=== PATIENT | female | born 1935 | race Caucasian/White ===

== ENCOUNTER → 2016-11-18 | Outpatient (REF) | payer MEDICARE, OTHER ==
[~2016-11-18] MED LIST: /ALEN70TA; /ALEN70TA PO; /ATOR40TA; /GLIM4TA; /OMEP10CA; /PANT40TA; /PANT40TA OR; /PRAV20TA; /TIOT18INH; ACET500T2; ACET65TA PO; AMLO5TAB; ASPI325T; ASPI81TA83 PO; ATAC32TA; BABY81CH; CALCCHW12; CALCIUM/VIT D PO; CAND16TA OR; CLAR5CHW; CLON0.5T; CLON0.5T PO; COUM10TA; COZA50TA18; FLUO10TA2 PO; FURO20TA2; GLUCOSAMINE; KLOR10TA; LASI40TA; MAGN500T2 OR; MULTIVIT PO; NOVO70VL; OMEGA 3 FATTY ACIDS; PROZ10CA; QUINAPRIL PO; THERGRAN; TYLENOL #3; VITAMIN D50000 UNT; [UNRECOGNIZED DRUG - OTHER]
== END ==
LOC: M LAB REF 16:56
PROVIDERS: ATTEND Obstetrics & Gynecology
DX: N39.0 Urinary tract infection, site not specified (principal)

== ENCOUNTER → 2018-05-29 | Outpatient (CLI) | payer MEDICARE, OTHER ==
--- NOTE | 2018-05-29 13:07 | REP ---
Chest two views HISTORY: Shortness of breath Comparison: 07/30/2015 The lungs are clear. The cardiac silhouette is enlarged. The pulmonary vasculature is normal in appearance. The bony structure is intact. There is scoliosis of the thoracic spine convex to the right. There is an old left rib fracture. IMPRESSION: Cardiomegaly. Electronically Signed by Noble Aldana MD 05/29/2018 12:59 P
== END ==
LOC: M RAD 12:27
PROVIDERS: ATTEND Family Medicine
DX: I51.7 Cardiomegaly (principal); R06.02 Shortness of breath

== ENCOUNTER → 2018-08-08 | Outpatient (CLI) | payer MEDICARE, OTHER ==
[~2018-08-08] MED LIST changes: -/ATOR40TA; -/GLIM4TA; -/PANT40TA; -/PANT40TA OR; -/PRAV20TA; -/TIOT18INH; +AMAR1TAB6; +LIPI1TAB2; +PRAV1TAB39; +PROT1TAB2; +PROT1TAB2 OR; +SPIR1CAP
--- NOTE | 2018-08-08 15:22 | REP ---
LUMBAR SPINE, FIVE VIEWS: HISTORY: Back pain. There is no acute fracture. The L2-3 through L5-S1 intervertebral discs are decreased in height consistent with disc degeneration. There is narrowing of the L4-5 and L5-S1 facet joints. There is scoliosis convex to the left. There are 7 mm of grade 1 spondylolisthesis of L4 on 5. The bony structure is osteopenic. IMPRESSION: Degenerative change as described above. Electronically Signed by Noble Aldana MD 08/08/2018 03:23 P
== END ==
LOC: M RAD 14:03
PROVIDERS: ATTEND Family Medicine
DX: M51.36 Other intervertebral disc degeneration, lumbar region (principal); M51.37 Other intervertebral disc degeneration, lumbosacral region; M41.9 Scoliosis, unspecified; M43.16 Spondylolisthesis, lumbar region

== ENCOUNTER → 2018-12-22 | Outpatient (CLI) | payer MEDICARE, OTHER ==
--- NOTE | 2018-12-22 13:57 | REP ---
Clinical: Contusion. Technique: AP, lateral, bilateral oblique views of the right ankle. Findings: Age-related osteopenia and degenerative changes are appreciated. Lateral swelling. No obvious acute fracture or dislocation. Impression: Soft-tissue swelling. No obvious acute fracture dislocation. Electronically Signed by Noble Montiel MD 12/22/2018 01:49 P
--- NOTE | 2018-12-22 13:59 | REP ---
Clinical: Contusion. Technique: AP and lateral views of the right tibia / fibula. Findings: Evidence of prior knee replacement and peripheral vascular disease. No acute fracture or dislocation. No subcutaneous emphysema or foreign body. Impression: No acute fracture or dislocation. Electronically Signed by Noble Montiel MD 12/22/2018 01:51 P
--- NOTE | 2018-12-22 14:05 | REP ---
Clinical: Contusion. Technique: AP, lateral, bilateral oblique views of the right foot. Findings: Age-related osteopenia and osteoarthritic degenerative changes are appreciated. No obvious acute fracture or dislocation identified. Impression: No obvious acute fracture or dislocation. Electronically Signed by Noble Montiel MD 12/22/2018 01:57 P
== END ==
LOC: M WUC 13:25
PROVIDERS: ATTEND Physician Assistant
DX: S80.11XA Contusion of right lower leg, initial encounter (principal); S90.01XA Contusion of right ankle, initial encounter; S90.31XA Contusion of right foot, initial encounter; Z96.651 Presence of right artificial knee joint; M85.871 Other specified disorders of bone density and structure, right ankle and foot; M19.071 Primary osteoarthritis, right ankle and foot; M79.89 Other specified soft tissue disorders; X58.XXXA Exposure to other specified factors, initial encounter; Y92.9 Unspecified place or not applicable

== ENCOUNTER → 2019-11-24 | Outpatient (REF) | payer MEDICARE, OTHER | LOC: M WUC 11:25 | PROVIDERS: ATTEND Physician Assistant | DX: N39.0 Urinary tract infection, site not specified (principal) ==

== ENCOUNTER → 2019-12-18 | Outpatient (REF) | payer MEDICARE, OTHER ==
[2019-12-18 18:15] LABS: APPEARANCE, URINE CLEAR (CLEAR); BACTERIA, URINE AUTO 1+ (NEGATIVE); BILIRUBIN, URINE AUTO NEGATIVE (NEGATIVE); BLOOD, URINE BLOOD NEGATIVE (NEGATIVE); COLOR, URINE YELLOW (YELLOW); GLUCOSE, URINE (UA) AUTO NEGATIVE (NEGATIVE); KETONE, URINE AUTO NEGATIVE (NEGATIVE); LEUKOCYTE ESTERASE, URINE AUTO 1+ (NEGATIVE); NITRITE, URINE AUTO NEGATIVE (NEGATIVE); PROTEIN, URINE AUTO NEGATIVE (NEGATIVE); RBC, URINE AUTO 1 /HPF (0-3); SPECIFIC GRAVITY URINE AUTO 1.012 (1.002-1.035); SQUAMOUS EPITHELIAL CELL UR AU 0 /HPF (0-6); UROBILINOGEN, URINE AUTO 0.2 mg/dL (0.0-2.0); WBC, URINE AUTO 13 /HPF (0-3)
== END ==
LOC: M LAB REF 17:16
PROVIDERS: ATTEND Obstetrics & Gynecology
DX: N32.81 Overactive bladder (principal); N39.41 Urge incontinence; R35.1 Nocturia

== ENCOUNTER → 2020-06-03 | Outpatient (CLI) | payer MEDICARE, OTHER | LOC: M LABSMTC 12:32 | PROVIDERS: ATTEND Pediatrics | DX: Z20.822 Contact with and (suspected) exposure to COVID-19 (principal) ==

== ENCOUNTER 2020-06-27 14:23 | Emergency (ER) | payer MEDICARE, OTHER ==
[~2020-06-27] VITALS: Ht 162.6 cm; Wt 57.3 kg
[2020-06-27] MEDS ORDERED: FURO20TA2 PO (14:48)
[2020-06-27] MEDS ORDERED: QUIN1TAB3 PO (14:48)
[2020-06-27] MEDS ORDERED: MYRB25TA PO (14:48)
[2020-06-27] MEDS ORDERED: K-TA10TA2 PO (14:48)
[2020-06-27] MEDS ORDERED: CVS1CAP2 PO (14:48)
[2020-06-27] MEDS ORDERED: CLON1TAB8 PO (14:48)
[2020-06-27] MEDS ORDERED: MOVE1TAB PO (14:48)
[2020-06-27] MEDS ORDERED: MORPHINE 4 MG/ML 1ML VIAL/SYRINGE (J2270) IV ONE (15:20)
--- NOTE | 2020-06-27 15:21 | REP ---
INDICATION: fall injury; right shoulder/upper arm/elbow pain COMPARISON: None. TECHNIQUE: AP and lateral views of the right humerus. FINDINGS: Age-related osteopenia and degenerative changes are appreciated. No obvious acute fracture or dislocation. IMPRESSION: Osteopenia and degenerative changes. No acute fracture or dislocation. <Electronically signed by Noble Montiel > 06/27/20 [id number]
--- NOTE | 2020-06-27 15:22 | REP ---
INDICATION: fall injury; right shoulder/upper arm/elbow pain COMPARISON: None. TECHNIQUE: Internal rotation, external rotation, and Y view. FINDINGS: Age-related osteopenia and degenerative changes are appreciated. No obvious acute fracture or dislocation. IMPRESSION: Osteopenia and degenerative changes. No acute fracture or dislocation appreciated. <Electronically signed by Noble Montiel > 06/27/20 [id number]
--- NOTE | 2020-06-27 15:23 | REP ---
INDICATION: fall injury; right shoulder/upper arm/elbow pain COMPARISON: None. TECHNIQUE: AP, lateral, bilateral oblique views of the right elbow. FINDINGS: Age-related osteopenia and degenerative changes are appreciated. No definite acute fracture or dislocation. Anterior and posterior fat pads are in relatively normal position. IMPRESSION: Osteopenia and degenerative changes. No definite acute fracture or dislocation. <Electronically signed by Noble Montiel > 06/27/20 [id number]
[2020-06-27 16:47] LABS: BASO % 0.6 % (0.0-1.0); EOS # 0.2 10^3/uL (0.0-0.5); EOS % 3.2 % (0.0-3.0); HEMATOCRIT 40.8 % (36.0-47.0); HEMOGLOBIN 12.7 g/dl (12.0-15.5); LYMPH % 29.4 % (24.0-44.0); MEAN CORPUSCULAR HEMOGLOBIN 29.5 pg (27.0-33.0); MEAN CORPUSCULAR HGB CONC 31.1 g/dl (32.0-36.5); MEAN CORPUSCULAR VOLUME 94.9 fl (80.0-96.0); MONO # 0.6 10^3/uL (0.0-0.8); MONO % 8.6 % (2.0-8.0); NEUTROPHILS # 3.9 10^3/uL (1.5-8.5); NEUTROPHILS % 57.8 % (36.0-66.0); WHITE BLOOD COUNT 6.8 10^3/uL (4.0-10.0)
[2020-06-27] MEDS ORDERED: amLODIPine 5 MG TAB PO ONE (17:05)
[2020-06-27 17:13] VITALS: BP 199/94
[2020-06-27 17:44] LABS: BLOOD UREA NITROGEN 24 MG/DL (7-18); CARBON DIOXIDE LEVEL 26 MEQ/L (21-32); CHLORIDE LEVEL 111 MEQ/L (98-107); CK-MB VALUE MASS 1.6 NG/ML (<3.6); CPK CREATINE PHOSPHOKINASE 89 U/L (26-192); CREATININE FOR GFR 0.83 MG/DL (0.55-1.30); GLOMERULAR FILTRATION RATE > 60.0 (>32); GLUCOSE, FASTING 96 MG/DL (70-100); POTASSIUM SERUM 4.4 MEQ/L (3.5-5.1); SODIUM LEVEL 144 MEQ/L (136-145); THYROID STIMULATING HORMONE 0.132 uIU/ML (0.358-3.740); TROPONIN I < 0.02 NG/ML (< 0.10)
[2020-06-27] MEDS ORDERED: NORV2TAB PO (18:36)
[2020-06-27 18:37] LABS: FREE T4 1.03 NG/DL (0.76-1.46)
[2020-06-27 18:49] VITALS: BP 198/95
--- NOTE | 2020-06-28 09:37 | ECGEPIP ---
[facility] - ED Test Date: 2020-06-27 Pat Name: JAYDON CONNELLY Department: Room: - Gender: Female Principal Consulting Engineer: SARIKA : 1935 Requested By: J LUIS JC Order Number: [id number] Reading MD: Gil Kaur Measurements Intervals [place] Rate: 61 P: 41 NE: 174 QRS: -16 QRSD: 96 T: 0 QT: 428 QTc: 430 Interpretive Statements Normal sinus rhythm with sinus arrhythmia Moderate voltage criteria for LVH, may be normal variant Inferior infarct , age undetermined POOR R WAVE PROGRESSION SIMILAR TO 07/30/15 Electronically Signed on 06-28-2020 9:36:59 EDT by Gil Kaur
== END 2020-06-27 18:50 | disposition home or self-care (01) ==
LOC: EDBD 14:23 → M ED 14:23
DX: S46.911A Strain of unspecified muscle, fascia and tendon at shoulder and upper arm level, right arm, initial encounter (principal); W01.0XXA Fall on same level from slipping, tripping and stumbling without subsequent striking against object, initial encounter; Y92.019 Unspecified place in single-family (private) house as the place of occurrence of the external cause; Y93.9 Activity, unspecified; Y99.9 Unspecified external cause status; I10 Essential (primary) hypertension; M19.011 Primary osteoarthritis, right shoulder; M85.811 Other specified disorders of bone density and structure, right shoulder; G25.81 Restless legs syndrome; F33.9 Major depressive disorder, recurrent, unspecified; Z79.899 Other long term (current) drug therapy
CPT/HCPCS: 73030; 73060; 73080; 80048; 82550; 82553; 84439; 84443; 84484; 85025; 93005; 96374; 99284; J2270

== ENCOUNTER → 2020-11-19 | Outpatient (CLI) | payer MEDICARE, OTHER ==
[~2020-11-19] MED LIST changes: +CLON1TAB8 PO; +CVS1CAP2 PO; +FURO20TA2 PO; +K-TA10TA2 PO; +MOVE1TAB PO; +MYRB25TA PO; +NORV2TAB PO; +QUIN1TAB3 PO
[2020-11-19 14:42] LABS: APPEARANCE, URINE CLEAR (CLEAR); BACTERIA, URINE AUTO NEGATIVE (NEGATIVE); BILIRUBIN, URINE AUTO NEGATIVE (NEGATIVE); BLOOD, URINE BLOOD NEGATIVE (NEGATIVE); COLOR, URINE YELLOW (YELLOW); GLUCOSE, URINE (UA) AUTO NEGATIVE (NEGATIVE); KETONE, URINE AUTO NEGATIVE (NEGATIVE); LEUKOCYTE ESTERASE, URINE AUTO TRACE (NEGATIVE); MUCUS, URINE SMALL (NEGATIVE); NITRITE, URINE AUTO NEGATIVE (NEGATIVE); PROTEIN, URINE AUTO NEGATIVE (NEGATIVE); RBC, URINE AUTO 1 /HPF (0-3); SPECIFIC GRAVITY URINE AUTO 1.013 (1.002-1.035); SQUAMOUS EPITHELIAL CELL UR AU 1 /HPF (0-6); UROBILINOGEN, URINE AUTO 0.2 mg/dL (0.0-2.0); WBC, URINE AUTO 3 /HPF (0-3)
== END ==
LOC: M WUC 11:47
PROVIDERS: ATTEND Family Medicine
DX: R35.0 Frequency of micturition (principal)

== ENCOUNTER → 2021-06-28 | Outpatient (REF) | payer MEDICARE, OTHER ==
[2021-06-28 16:28] LABS: BASO # 0.1 10^3/uL (0.0-0.2); BASO % 0.8 % (0.0-1.0); EOS # 0.6 10^3/uL (0.0-0.5); EOS % 9.1 % (0.0-3.0); HEMATOCRIT 37.7 % (36.0-47.0); HEMOGLOBIN 12.6 g/dl (12.0-15.5); LYMPH # 2.2 10^3/uL (1.5-5.0); LYMPH % 33.7 % (24.0-44.0); MEAN CORPUSCULAR HEMOGLOBIN 33.9 pg (27.0-33.0); MEAN CORPUSCULAR HGB CONC 33.4 g/dl (32.0-36.5); MEAN CORPUSCULAR VOLUME 101.3 fl (80.0-96.0); MONO # 0.6 10^3/uL (0.0-0.8); MONO % 8.8 % (2.0-8.0); NEUTROPHILS % 47.3 % (36.0-66.0); PLATELET COUNT, AUTOMATED 292 10^3/uL (150-450); RED BLOOD COUNT 3.72 10^6/uL (4.00-5.40); WHITE BLOOD COUNT 6.4 10^3/uL (4.0-10.0)
[2021-06-28 16:48] LABS: ALBUMIN 3.8 GM/DL (3.2-5.2); BILIRUBIN,TOTAL 0.3 MG/DL (0.2-1.0); CALCIUM LEVEL 9.5 MG/DL (8.8-10.2); CHOLESTEROL RISK RATIO 2.471 (<5); CREATININE FOR GFR 0.96 MG/DL (0.55-1.30); FREE T4 0.92 NG/DL (0.76-1.46); GLOMERULAR FILTRATION RATE 58.7 (>32); POTASSIUM SERUM 4.3 MEQ/L (3.5-5.1); THYROID STIMULATING HORMONE 0.246 uIU/ML (0.358-3.740); TOTAL 25(OH) VITAMIN D 23.9 NG/ML (30.0-100.0); TOTAL PROTEIN 7.4 GM/DL (6.4-8.2)
[2021-06-28 17:32] LABS: FOLATE 17.3 NG/ML
== END ==
LOC: M SFHCCAPE 08:05
PROVIDERS: ATTEND Physician Assistant
DX: R32 Unspecified urinary incontinence (principal); I10 Essential (primary) hypertension; Z79.899 Other long term (current) drug therapy

== ENCOUNTER → 2021-07-01 | Outpatient (REF) | payer MEDICARE, OTHER ==
[2021-07-01 19:36] LABS: APPEARANCE, URINE CLEAR (CLEAR); BACTERIA, URINE AUTO NEGATIVE (NEGATIVE); BILIRUBIN, URINE AUTO NEGATIVE (NEGATIVE); BLOOD, URINE BLOOD NEGATIVE (NEGATIVE); COLOR, URINE YELLOW (YELLOW); GLUCOSE, URINE (UA) AUTO NEGATIVE (NEGATIVE); KETONE, URINE AUTO NEGATIVE (NEGATIVE); LEUKOCYTE ESTERASE, URINE AUTO NEGATIVE (NEGATIVE); MUCUS, URINE SMALL (NEGATIVE); NITRITE, URINE AUTO NEGATIVE (NEGATIVE); PROTEIN, URINE AUTO NEGATIVE (NEGATIVE); RBC, URINE AUTO 0 /HPF (0-3); SPECIFIC GRAVITY URINE AUTO 1.011 (1.002-1.035); SQUAMOUS EPITHELIAL CELL UR AU 0 /HPF (0-6); UROBILINOGEN, URINE AUTO 0.2 mg/dL (0.0-2.0); WBC, URINE AUTO 2 /HPF (0-3)
== END ==
LOC: M SFHCCAPE 14:24
PROVIDERS: ATTEND Physician Assistant
DX: R32 Unspecified urinary incontinence (principal)

== ENCOUNTER → 2022-01-04 | Outpatient (REF) | payer MEDICARE, OTHER ==
[2022-01-04 17:52] LABS: BASO # 0.1 10^3/uL (0.0-0.2); BASO % 0.8 % (0.0-1.0); EOS # 0.4 10^3/uL (0.0-0.5); EOS % 4.9 % (0.0-3.0); HEMATOCRIT 40.3 % (36.0-47.0); HEMOGLOBIN 12.8 g/dl (12.0-15.5); LYMPH % 23.4 % (24.0-44.0); MEAN CORPUSCULAR HEMOGLOBIN 31.1 pg (27.0-33.0); MEAN CORPUSCULAR HGB CONC 31.8 g/dl (32.0-36.5); MEAN CORPUSCULAR VOLUME 97.8 fl (80.0-96.0); MONO # 0.9 10^3/uL (0.0-0.8); MONO % 10.1 % (2.0-8.0); NEUTROPHILS # 5.1 10^3/uL (1.5-8.5); NEUTROPHILS % 60.6 % (36.0-66.0); PLATELET COUNT, AUTOMATED 315 10^3/uL (150-450); RED BLOOD COUNT 4.12 10^6/uL (4.00-5.40); WHITE BLOOD COUNT 8.4 10^3/uL (4.0-10.0)
[2022-01-04 18:36] LABS: ALBUMIN 3.8 GM/DL (3.2-5.2); BILIRUBIN,TOTAL 0.4 MG/DL (0.2-1.0); CALCIUM LEVEL 9.8 MG/DL (8.8-10.2); CREATININE FOR GFR 0.98 MG/DL (0.55-1.30); FREE T4 0.89 NG/DL (0.76-1.46); GLOMERULAR FILTRATION RATE 57.3 (>32); THYROID STIMULATING HORMONE 0.205 uIU/ML (0.358-3.740); TOTAL PROTEIN 7.6 GM/DL (6.4-8.2)
[2022-01-09 17:06] LABS: HOMOCYST(E)INE SERUM 27.2 umol/L (0.0-21.3); Methylmalonic Acid 458 nmol/L (0-378)
== END ==
LOC: M SFHCCAPE 08:13
PROVIDERS: ATTEND Physician Assistant
DX: D75.89 Other specified diseases of blood and blood-forming organs (principal); R94.6 Abnormal results of thyroid function studies

== ENCOUNTER → 2022-06-15 | Outpatient (CLI) | payer MEDICARE, OTHER ==
[~2022-06-15] MED LIST changes: +AMLO1TAB24 PO; +ASPI81TA26 PO; +CELE40TA PO; +CITA20TA6 PO; +GLUC1TAB58 PO; +LISI20TA33 PO; +MYRB50TA PO
[2022-06-15 17:31] LABS: BASO % 0.5 % (0.0-1.0); EOS # 0.3 10^3/uL (0.0-0.5); EOS % 5.3 % (0.0-3.0); HEMATOCRIT 38.2 % (36.0-47.0); HEMOGLOBIN 12.3 g/dl (12.0-15.5); LYMPH # 1.6 10^3/uL (1.5-5.0); LYMPH % 24.2 % (24.0-44.0); MEAN CORPUSCULAR HEMOGLOBIN 31.9 pg (27.0-33.0); MEAN CORPUSCULAR HGB CONC 32.2 g/dl (32.0-36.5); MEAN CORPUSCULAR VOLUME 99.2 fl (80.0-96.0); MONO # 0.6 10^3/uL (0.0-0.8); NEUTROPHILS # 3.8 10^3/uL (1.5-8.5); NEUTROPHILS % 59.8 % (36.0-66.0); PLATELET COUNT, AUTOMATED 350 10^3/uL (150-450); RED BLOOD COUNT 3.85 10^6/uL (4.00-5.40); WHITE BLOOD COUNT 6.4 10^3/uL (4.0-10.0)
[2022-06-15 17:36] LABS: APPEARANCE, URINE HAZY (CLEAR); BACTERIA, URINE AUTO 3+ (NEGATIVE); BILIRUBIN, URINE AUTO NEGATIVE (NEGATIVE); BLOOD, URINE BLOOD 1+ (NEGATIVE); COLOR, URINE YELLOW (YELLOW); GLUCOSE, URINE (UA) AUTO NEGATIVE (NEGATIVE); KETONE, URINE AUTO NEGATIVE (NEGATIVE); LEUKOCYTE ESTERASE, URINE AUTO 2+ (NEGATIVE); NITRITE, URINE AUTO POSITIVE (NEGATIVE); PROTEIN, URINE AUTO NEGATIVE (NEGATIVE); RBC, URINE AUTO 4 /HPF (0-3); SPECIFIC GRAVITY URINE AUTO 1.019 (1.002-1.035); SQUAMOUS EPITHELIAL CELL UR AU 0 /HPF (0-6); UROBILINOGEN, URINE AUTO 0.2 mg/dL (0.0-2.0); WBC, URINE AUTO 31 /HPF (0-3)
[2022-06-15 17:49] LABS: ALBUMIN 3.6 G/DL (3.2-5.2); ALKALINE PHOSPHATASE 77 U/L (46-116); ALT/SGPT 14 U/L (7.0-40); AST/SGOT 11 U/L (<34); BILIRUBIN,TOTAL 0.2 MG/DL (0.3-1.2); BLOOD UREA NITROGEN 46 MG/DL (9-23); CALCIUM LEVEL 9.9 MG/DL (8.3-10.6); CARBON DIOXIDE LEVEL 28 MMOL/L (20-31); CHLORIDE LEVEL 105 MMOL/L (98-107); CREATININE FOR GFR 1.14 MG/DL (0.55-1.30); FOLATE 6.23 NG/ML (>5.4); FREE T4 1.08 NG/DL (0.89-1.76); GLOMERULAR FILTRATION RATE 48.1 (>32); GLUCOSE, FASTING 99 MG/DL (74-106); POTASSIUM SERUM 4.4 MMOL/L (3.5-5.1); SODIUM LEVEL 141 MMOL/L (136-145); THYROID STIMULATING HORMONE 0.068 uIU/ML (0.55-4.78); TOTAL PROTEIN 7.3 G/DL (5.7-8.2)
[2022-06-15 17:50] LABS: VITAMIN B12 LEVEL > 2000 PG/ML (211-911)
[2022-06-19 08:12] LABS: Methylmalonic Acid 306 nmol/L (0-378)
== END ==
LOC: M PLAIMG 15:08
PROVIDERS: ATTEND Physician Assistant
DX: M85.88 Other specified disorders of bone density and structure, other site (principal); M41.9 Scoliosis, unspecified; M51.34 Other intervertebral disc degeneration, thoracic region; E53.8 Deficiency of other specified B group vitamins; R29.6 Repeated falls; Z79.899 Other long term (current) drug therapy

== ENCOUNTER → 2022-07-07 | Outpatient (CLI) | payer MEDICARE, OTHER ==
[~2022-07-07] MED LIST changes: +CEFT1INJ5 IM; +CELE20TA PO; +PERCOCET PO; +PRED20TA PO; +VENL37.598 PO
== END ==
LOC: M PLAIMG 13:14
PROVIDERS: ATTEND Physician Assistant
DX: M54.6 Pain in thoracic spine (principal); M41.84 Other forms of scoliosis, thoracic region

== ENCOUNTER 2022-07-09 15:27 | Inpatient (IN) | payer MEDICARE, OTHER ==
[~2022-07-09] VITALS: Ht 157.5 cm; Wt 47.8 kg
[~2022-07-09 15:27] MED LIST changes: -AMLO1TAB24 PO; -ASPI81TA26 PO; -CEFT1INJ5 IM; -CELE20TA PO; -CELE40TA PO; -CITA20TA6 PO; -GLUC1TAB58 PO; -LISI20TA33 PO; -MYRB50TA PO; -PERCOCET PO; -PRED20TA PO; -VENL37.598 PO
[2022-07-09] MEDS ORDERED: LISI20TA33 PO (15:42)
[2022-07-09] MEDS ORDERED: CITA20TA6 PO (15:43)
[2022-07-09] MEDS ORDERED: MYRB50TA PO (15:43)
[2022-07-09] MEDS ORDERED: GLUC1TAB58 PO (15:44)
[2022-07-09 17:15] LABS: BASO % 0.3 % (0.0-1.0); EOS % 0.1 % (0.0-3.0); HEMATOCRIT 37.3 % (36.0-47.0); HEMOGLOBIN 11.8 g/dl (12.0-15.5); LYMPH # 0.9 10^3/uL (1.5-5.0); LYMPH % 8.3 % (24.0-44.0); MEAN CORPUSCULAR HEMOGLOBIN 30.6 pg (27.0-33.0); MEAN CORPUSCULAR HGB CONC 31.6 g/dl (32.0-36.5); MEAN CORPUSCULAR VOLUME 96.9 fl (80.0-96.0); MONO # 0.7 10^3/uL (0.0-0.8); MONO % 6.4 % (2.0-8.0); NEUTROPHILS # 9.3 10^3/uL (1.5-8.5); NEUTROPHILS % 84.5 % (36.0-66.0); PLATELET COUNT, AUTOMATED 335 10^3/uL (150-450); RED BLOOD COUNT 3.85 10^6/uL (4.00-5.40)
[2022-07-09 17:36] LABS: ETHYL ALCOHOL (ETHANOL) < 0.003 % (0.000-0.010)
[2022-07-09 17:37] LABS: ACETAMINOPHEN LEVEL < 2.0 UG/ML (10.0-20.0)
[2022-07-09 17:38] LABS: SALICYLATE LEVEL < 3.0 MG/DL (<30)
[2022-07-09 17:43] LABS: ALBUMIN 4.1 G/DL (3.2-5.2); ALKALINE PHOSPHATASE 70 U/L (46-116); ALT/SGPT 28 U/L (7.0-40); AST/SGOT 48 U/L (<34); BILIRUBIN,DIRECT < 0.1 MG/DL (<0.4); BILIRUBIN,TOTAL 0.4 MG/DL (0.3-1.2); BLOOD UREA NITROGEN 52 MG/DL (9-23); CALCIUM LEVEL 9.1 MG/DL (8.3-10.6); CARBON DIOXIDE LEVEL 25 MMOL/L (20-31); CHLORIDE LEVEL 103 MMOL/L (98-107); CK-MB VALUE MASS 2.8 NG/ML (<3.6); CPK CREATINE PHOSPHOKINASE 197 U/L (34-145); CREATININE FOR GFR 1.65 MG/DL (0.55-1.30); GLOMERULAR FILTRATION RATE 31.3 (>32); GLUCOSE, FASTING 124 MG/DL (74-106); MB/CK RELATIVE INDEX 1.42 (< OR =4); POTASSIUM SERUM 6.1 MMOL/L (3.5-5.1); SODIUM LEVEL 137 MMOL/L (136-145); THYROID STIMULATING HORMONE 0.289 uIU/ML (0.55-4.78); TOTAL PROTEIN 7.3 G/DL (5.7-8.2)
[2022-07-09] MEDS ORDERED: NS 1,000 ML IV ONE (18:00)
[2022-07-09 18:36] LABS: CREATININE FOR GFR 1.66 MG/DL (0.55-1.30); GLOMERULAR FILTRATION RATE 31.1 (>32); POTASSIUM SERUM 5.1 MMOL/L (3.5-5.1)
[2022-07-09] MEDS ORDERED: ASPI81TA26 PO (18:45)
[2022-07-09] MEDS ORDERED: CELE40TA PO (18:45)
[2022-07-09] MEDS ORDERED: AMLO1TAB24 PO (18:45)
[2022-07-09] MEDS ORDERED: HOME MED LIST COMPLETE! XX SCH (18:50)
[2022-07-09 18:57] LABS: RSV AMPLIFICATION NEGATIVE (NEGATIVE)
[2022-07-09] MEDS: NS 1,000 ML IV SCH (19:50)
[2022-07-09 23:32] VITALS: BP 133/77
[2022-07-10] MEDS: ACETAMINOPHEN TAB 650MG DOSE (2X325MG) PO PRN ×2 (00:14→10:01)
[2022-07-10] MEDS: NS 1,000 ML IV SCH ×2 (05:36→20:19)
[2022-07-10 06:00] VITALS: BP 128/50
[2022-07-10 06:13] LABS: AMPHETAMINES LEVEL URINE NEGATIVE (NEGATIVE); BARBITURATES URINE NEGATIVE (NEGATIVE); BENZODIAZEPINES URINE NEGATIVE (NEGATIVE); CANNABINOIDS URINE NEGATIVE (NEGATIVE); COCAINE METABOLITE URINE NEGATIVE (NEGATIVE); METHADONE URINE NEGATIVE (NEGATIVE); OPIATES URINE NEGATIVE (NEGATIVE); PHENCYCLIDINE URINE NEGATIVE (NEGATIVE)
[2022-07-10 06:56] LABS: HEMATOCRIT 28.5 % (36.0-47.0); MEAN CORPUSCULAR HEMOGLOBIN 31.7 pg (27.0-33.0); MEAN CORPUSCULAR HGB CONC 32.3 g/dl (32.0-36.5); MEAN CORPUSCULAR VOLUME 98.3 fl (80.0-96.0); PLATELET COUNT, AUTOMATED 267 10^3/uL (150-450); WHITE BLOOD COUNT 8.7 10^3/uL (4.0-10.0)
[2022-07-10 07:02] LABS: HEMOGLOBIN 9.2 g/dl (12.0-15.5)
[2022-07-10 07:22] LABS: CHOLESTEROL RISK RATIO 2.49 (<5)
[2022-07-10 07:25] LABS: CALCIUM LEVEL 8.3 MG/DL (8.3-10.6); CREATININE FOR GFR 1.57 MG/DL (0.55-1.30); GLOMERULAR FILTRATION RATE 33.2 (>32); MAGNESIUM LEVEL 1.9 MG/DL (1.8-2.4); POTASSIUM SERUM 4.5 MMOL/L (3.5-5.1)
[2022-07-10 08:17] LABS: HEMOGLOBIN A1c 5.8 % (4.0-6.0)
[2022-07-10] MEDS ORDERED: ASPIRIN 81MG ENTERIC TABLET PO SCH (09:00)
[2022-07-10] MEDS ORDERED: CitaloPRAM (CeleXA) 20 MG TAB PO SCH (09:00)
[2022-07-10] MEDS: amLODIPine 5 MG TAB PO SCH (10:02)
[2022-07-10 10:29] VITALS: BP_SYST 120; BP_SYST 127; BP_SYST 131; BP_DIAS 58; BP_DIAS 61; BP_DIAS 88
[2022-07-10] MEDS: LIDOCAINE 5% (LIDODERM) PATCH TD SCH (12:03)
[2022-07-10] MEDS ORDERED: traMADol 50 MG TAB PO PRN (12:15)
[2022-07-10 12:29] LABS: HEMATOCRIT 28.7 % (36.0-47.0); HEMOGLOBIN 9.2 g/dl (12.0-15.5)
[2022-07-10] MEDS: VENLAFAXINE **XR** 37.5 MG CAPSULE PO SCH (13:20)
[2022-07-10 14:00] VITALS: BP 128/87
[2022-07-10 15:28] LABS: CREATININE,RANDOM URINE 81.7 MG/DL
[2022-07-10 18:43] LABS: HEMATOCRIT 26.6 % (36.0-47.0); HEMOGLOBIN 9.7 g/dl (12.0-15.5)
[2022-07-10 20:00] VITALS: BP 139/53
[2022-07-11 01:03] LABS: HEMATOCRIT 25.7 % (36.0-47.0); HEMOGLOBIN 8.8 g/dl (12.0-15.5)
[2022-07-11 06:00] VITALS: BP 159/74
[2022-07-11 06:10] LABS: BASO % 0.5 % (0.0-1.0); EOS # 0.2 10^3/uL (0.0-0.5); EOS % 2.2 % (0.0-3.0); HEMATOCRIT 27.1 % (36.0-47.0); HEMOGLOBIN 8.8 g/dl (12.0-15.5); LYMPH % 11.6 % (24.0-44.0); MEAN CORPUSCULAR HEMOGLOBIN 32.7 pg (27.0-33.0); MEAN CORPUSCULAR HGB CONC 32.5 g/dl (32.0-36.5); MEAN CORPUSCULAR VOLUME 100.7 fl (80.0-96.0); MONO # 0.7 10^3/uL (0.0-0.8); MONO % 7.6 % (2.0-8.0); NEUTROPHILS # 6.6 10^3/uL (1.5-8.5); NEUTROPHILS % 77.7 % (36.0-66.0); PLATELET COUNT, AUTOMATED 244 10^3/uL (150-450); RED BLOOD COUNT 2.69 10^6/uL (4.00-5.40); WHITE BLOOD COUNT 8.5 10^3/uL (4.0-10.0)
[2022-07-11 06:45] LABS: CALCIUM LEVEL 8.3 MG/DL (8.3-10.6); CREATININE FOR GFR 0.97 MG/DL (0.55-1.30); GLOMERULAR FILTRATION RATE 57.8 (>32); MAGNESIUM LEVEL 1.6 MG/DL (1.8-2.4); POTASSIUM SERUM 4.2 MMOL/L (3.5-5.1)
[2022-07-11] MEDS ORDERED: MOM 30ML SUSPENSION UDC PO PRN (08:30)
[2022-07-11] MEDS ORDERED: MIRALAX *UNIT DOSE* 17GM PACKET PO PRN (08:30)
[2022-07-11] MEDS ORDERED: PERCOCET 5MG/325MG TAB PO PRN (08:30)
[2022-07-11] MEDS ORDERED: SENOKOT S TAB PO PRN (08:30)
[2022-07-11] MEDS: VENLAFAXINE **XR** 37.5 MG CAPSULE PO SCH (08:37)
[2022-07-11 08:38] VITALS: BP 159/74
[2022-07-11] MEDS: amLODIPine 5 MG TAB PO SCH (08:38)
[2022-07-11] MEDS: LIDOCAINE 5% (LIDODERM) PATCH TD SCH (08:38)
[2022-07-11] MEDS: MAG SULF 1GM/100ML (MAG RUN) 1 GM in IV 1 EA IV SCH ×2 (08:40→10:46)
[2022-07-11] MEDS ORDERED: predniSONE 20 MG TAB PO SCH (09:00)
[2022-07-11] MEDS ORDERED: CitaloPRAM (CeleXA) 20 MG TAB PO SCH (09:00)
[2022-07-11 09:06] LABS: URIC ACID 7.2 MG/DL (3.1-7.8)
[2022-07-11 09:42] LABS: ERYTHROCYTE SEDIMENTATION RATE 1 mm/hr (0-30)
[2022-07-11] MEDS ORDERED: VENL37.598 PO (11:54)
[2022-07-11] MEDS ORDERED: PRED20TA PO (11:54)
[2022-07-11] MEDS ORDERED: CEFT1INJ5 IM (11:54)
[2022-07-11] MEDS ORDERED: CELE20TA PO (11:54)
[2022-07-11] MEDS ORDERED: PERCOCET PO (11:54)
[2022-07-11] MEDS ORDERED: cefTRIAXone SOD 1 GM in D5W MINI-BAG PLUS 50 ML IV SCH (12:00)
== END 2022-07-11 13:30 | DRG 205 ==
LOC: EDBD 15:27 → M ED 15:27 → M ED INP 19:47 → ENRESERV 22:35 → M MSPAV 23:32
PROVIDERS: ADMIT Internal Medicine; ATTEND Internal Medicine
DX: S22.31XA Fracture of one rib, right side, initial encounter for closed fracture (principal); I63.81 Other cerebral infarction due to occlusion or stenosis of small artery; N17.9 Acute kidney failure, unspecified; R45.851 Suicidal ideations; S70.01XA Contusion of right hip, initial encounter; E78.5 Hyperlipidemia, unspecified; I11.0 Hypertensive heart disease with heart failure; K21.9 Gastro-esophageal reflux disease without esophagitis; I50.9 Heart failure, unspecified; F32.A Depression, unspecified; R26.89 Other abnormalities of gait and mobility; M19.90 Unspecified osteoarthritis, unspecified site; R29.6 Repeated falls; Z85.828 Personal history of other malignant neoplasm of skin; G25.81 Restless legs syndrome; M10.9 Gout, unspecified; K44.9 Diaphragmatic hernia without obstruction or gangrene; Z98.41 Cataract extraction status, right eye; Z98.42 Cataract extraction status, left eye; Z96.651 Presence of right artificial knee joint; Z90.79 Acquired absence of other genital organ(s); Z79.82 Long term (current) use of aspirin; Z79.899 Other long term (current) drug therapy; Z66 Do not resuscitate; W01.0XXA Fall on same level from slipping, tripping and stumbling without subsequent striking against object, initial encounter; Y92.009 Unspecified place in unspecified non-institutional (private) residence as the place of occurrence of the external cause

== ENCOUNTER 2022-07-11 12:16 | Inpatient (IN) | payer MEDICARE, OTHER ==
[~2022-07-11] VITALS: Ht 157.5 cm; Wt 50.0 kg
[~2022-07-11 12:16] MED LIST changes: +AMLO1TAB24 PO; +ASPI81TA26 PO; +CEFT1INJ5 IM; +CELE20TA PO; +CELE40TA PO; +CITA20TA6 PO; +GLUC1TAB58 PO; +LISI20TA33 PO; +MYRB50TA PO; +PERCOCET PO; +PRED20TA PO; +VENL37.598 PO
[2022-07-11 13:37] VITALS: BP 160/72
[2022-07-11] MEDS ORDERED: HOME MED LIST COMPLETE! XX SCH (14:30)
[2022-07-11] MEDS ORDERED: ONDANSETRON 4MG TAB PO PRN (15:00)
[2022-07-11] MEDS ORDERED: oxyCODONE 5MG TAB PO PRN (15:00)
[2022-07-11] MEDS ORDERED: BISACODYL 10MG SUPP PR PRN (15:00)
[2022-07-11] MEDS: REMEDY PHYTOPLEX Z-GUARD PASTE 113GM TUBE (FROM STOREROOM PRODUCT) TOP SCH ×2 (16:00→20:13)
[2022-07-11] MEDS: ASPIRIN 81MG ENTERIC TABLET PO SCH (16:54)
[2022-07-11] MEDS: SUCRALFATE 1 GM TAB PO SCH (16:55)
[2022-07-11] MEDS: LACTOBACILLUS ACIDOPHILUS CAP (BACID) PO SCH (16:55)
[2022-07-11] MEDS: ACETAMINOPHEN 650MG ER TAB (TYLENOL ARTHRITIS) PO SCH ×2 (16:55→20:38)
[2022-07-11 20:00] VITALS: BP 137/63
[2022-07-11] MEDS: PANTOPRAZOLE 40MG TAB (PROTONIX) PO SCH (20:13)
[2022-07-11] MEDS: DOCUSATE SODIUM 100MG CAPSULE PO SCH (20:13)
[2022-07-11] MEDS: SENNA 8.6 MG TAB (SENOKOT) PO SCH (20:13)
[2022-07-12] MEDS: ACETAMINOPHEN 650MG ER TAB (TYLENOL ARTHRITIS) PO SCH ×3 (05:36→19:39)
[2022-07-12 06:00] VITALS: BP 154/76
[2022-07-12 07:06] LABS: BASO % 0.4 % (0.0-1.0); EOS # 0.2 10^3/uL (0.0-0.5); EOS % 1.8 % (0.0-3.0); HEMATOCRIT 26.6 % (36.0-47.0); HEMOGLOBIN 8.4 g/dl (12.0-15.5); LYMPH # 1.7 10^3/uL (1.5-5.0); LYMPH % 19.9 % (24.0-44.0); MEAN CORPUSCULAR HGB CONC 31.6 g/dl (32.0-36.5); MONO # 0.7 10^3/uL (0.0-0.8); MONO % 8.5 % (2.0-8.0); NEUTROPHILS # 5.7 10^3/uL (1.5-8.5); PLATELET COUNT, AUTOMATED 239 10^3/uL (150-450); WHITE BLOOD COUNT 8.3 10^3/uL (4.0-10.0)
[2022-07-12] MEDS: SUCRALFATE 1 GM TAB PO SCH ×4 (07:30→17:24)
[2022-07-12 07:37] LABS: ALBUMIN 2.9 G/DL (3.2-5.2); ALKALINE PHOSPHATASE 54 U/L (46-116); ALT/SGPT 18 U/L (7.0-40); AST/SGOT 22 U/L (<34); BILIRUBIN,TOTAL 0.5 MG/DL (0.3-1.2); BLOOD UREA NITROGEN 19 MG/DL (9-23); CALCIUM LEVEL 8.3 MG/DL (8.3-10.6); CARBON DIOXIDE LEVEL 28 MMOL/L (20-31); CHLORIDE LEVEL 107 MMOL/L (98-107); CREATININE FOR GFR 0.89 MG/DL (0.55-1.30); GLOMERULAR FILTRATION RATE > 60.0 (>32); GLUCOSE, FASTING 86 MG/DL (74-106); MAGNESIUM LEVEL 1.9 MG/DL (1.8-2.4); POTASSIUM SERUM 4.4 MMOL/L (3.5-5.1); SODIUM LEVEL 140 MMOL/L (136-145); TOTAL PROTEIN 5.4 G/DL (5.7-8.2)
[2022-07-12] MEDS: LACTOBACILLUS ACIDOPHILUS CAP (BACID) PO SCH ×3 (08:00→17:24)
[2022-07-12] MEDS: CitaloPRAM (CeleXA) 20 MG TAB PO SCH (08:37)
[2022-07-12] MEDS: ASPIRIN 81MG ENTERIC TABLET PO SCH ×2 (08:37→08:54)
[2022-07-12] MEDS: PANTOPRAZOLE 40MG TAB (PROTONIX) PO SCH ×3 (08:37→19:40)
[2022-07-12] MEDS: MAGNESIUM OXIDE 400MG TAB (MAG-OX) PO SCH (08:37)
[2022-07-12] MEDS: DOCUSATE SODIUM 100MG CAPSULE PO SCH ×3 (08:37→19:41)
[2022-07-12] MEDS: VENLAFAXINE **XR** 37.5 MG CAPSULE PO SCH (08:37)
[2022-07-12] MEDS: predniSONE 20 MG TAB PO SCH (08:37)
[2022-07-12] MEDS: amLODIPine 5 MG TAB PO SCH (08:38)
[2022-07-12] MEDS: REMEDY PHYTOPLEX Z-GUARD PASTE 113GM TUBE (FROM STOREROOM PRODUCT) TOP SCH ×4 (08:39→19:42)
[2022-07-12] MEDS: LIDOCAINE 5% (LIDODERM) PATCH TD SCH (08:39)
[2022-07-12] MEDS: cefTRIAXone SOD 1 GM in D5W MINI-BAG PLUS 50 ML IV SCH (12:30)
[2022-07-12 14:00] VITALS: BP 124/62
[2022-07-12] MEDS: traZODone 25MG PER 1/2 TABLET PO SCH (19:40)
[2022-07-12] MEDS: SENNA 8.6 MG TAB (SENOKOT) PO SCH (19:41)
[2022-07-12 20:00] VITALS: BP 132/63
[2022-07-13 06:00] VITALS: BP 158/68
[2022-07-13] MEDS: ACETAMINOPHEN 650MG ER TAB (TYLENOL ARTHRITIS) PO SCH ×3 (06:12→20:11)
[2022-07-13 06:30] LABS: BASO % 0.5 % (0.0-1.0); EOS # 0.2 10^3/uL (0.0-0.5); EOS % 3.5 % (0.0-3.0); HEMATOCRIT 27.3 % (36.0-47.0); HEMOGLOBIN 8.7 g/dl (12.0-15.5); LYMPH # 1.9 10^3/uL (1.5-5.0); LYMPH % 30.4 % (24.0-44.0); MEAN CORPUSCULAR HEMOGLOBIN 30.9 pg (27.0-33.0); MEAN CORPUSCULAR HGB CONC 31.9 g/dl (32.0-36.5); MEAN CORPUSCULAR VOLUME 96.8 fl (80.0-96.0); MONO # 0.6 10^3/uL (0.0-0.8); MONO % 8.8 % (2.0-8.0); NEUTROPHILS # 3.5 10^3/uL (1.5-8.5); NEUTROPHILS % 56.5 % (36.0-66.0); PLATELET COUNT, AUTOMATED 263 10^3/uL (150-450); RED BLOOD COUNT 2.82 10^6/uL (4.00-5.40); WHITE BLOOD COUNT 6.2 10^3/uL (4.0-10.0)
[2022-07-13 06:52] LABS: CALCIUM LEVEL 8.7 MG/DL (8.3-10.6); GLOMERULAR FILTRATION RATE 55.8 (>32); POTASSIUM SERUM 4.2 MMOL/L (3.5-5.1)
[2022-07-13] MEDS: CitaloPRAM (CeleXA) 20 MG TAB PO SCH (07:22)
[2022-07-13] MEDS: amLODIPine 5 MG TAB PO SCH (07:22)
[2022-07-13] MEDS: ASPIRIN 81MG ENTERIC TABLET PO SCH (07:22)
[2022-07-13] MEDS: VENLAFAXINE **XR** 37.5 MG CAPSULE PO SCH (07:22)
[2022-07-13] MEDS: LACTOBACILLUS ACIDOPHILUS CAP (BACID) PO SCH ×2 (07:22→17:20)
[2022-07-13] MEDS: PANTOPRAZOLE 40MG TAB (PROTONIX) PO SCH ×2 (07:23→20:10)
[2022-07-13] MEDS: REMEDY PHYTOPLEX Z-GUARD PASTE 113GM TUBE (FROM STOREROOM PRODUCT) TOP SCH ×3 (07:23→20:12)
[2022-07-13] MEDS: predniSONE 20 MG TAB PO SCH (07:23)
[2022-07-13] MEDS: LIDOCAINE 5% (LIDODERM) PATCH TD SCH (07:23)
[2022-07-13] MEDS: SUCRALFATE 1 GM TAB PO SCH ×3 (07:23→17:20)
[2022-07-13] MEDS: MAGNESIUM OXIDE 400MG TAB (MAG-OX) PO SCH (07:23)
[2022-07-13] MEDS: DOCUSATE SODIUM 100MG CAPSULE PO SCH ×2 (07:23→20:10)
[2022-07-13] MEDS: cefTRIAXone SOD 1 GM in D5W MINI-BAG PLUS 50 ML IV SCH (11:25)
[2022-07-13 14:00] VITALS: BP 149/64
[2022-07-13 20:00] VITALS: BP 148/70
[2022-07-13] MEDS: SENNA 8.6 MG TAB (SENOKOT) PO SCH (20:10)
[2022-07-13] MEDS: traZODone 25MG PER 1/2 TABLET PO SCH (20:11)
[2022-07-14] MEDS: ACETAMINOPHEN 650MG ER TAB (TYLENOL ARTHRITIS) PO SCH ×3 (05:41→20:15)
[2022-07-14 05:42] VITALS: BP 172/60
[2022-07-14 07:33] VITALS: BP 136/63
[2022-07-14] MEDS: LACTOBACILLUS ACIDOPHILUS CAP (BACID) PO SCH ×2 (07:34→17:22)
[2022-07-14] MEDS: predniSONE 20 MG TAB PO SCH (07:34)
[2022-07-14] MEDS: ASPIRIN 81MG ENTERIC TABLET PO SCH (07:34)
[2022-07-14] MEDS: LIDOCAINE 5% (LIDODERM) PATCH TD SCH (07:34)
[2022-07-14] MEDS: PANTOPRAZOLE 40MG TAB (PROTONIX) PO SCH ×2 (07:34→20:15)
[2022-07-14] MEDS: VENLAFAXINE **XR** 37.5 MG CAPSULE PO SCH (07:34)
[2022-07-14] MEDS: CitaloPRAM (CeleXA) 20 MG TAB PO SCH (07:34)
[2022-07-14] MEDS: SUCRALFATE 1 GM TAB PO SCH ×3 (07:34→17:22)
[2022-07-14] MEDS: DOCUSATE SODIUM 100MG CAPSULE PO SCH ×2 (07:34→20:15)
[2022-07-14] MEDS: MAGNESIUM OXIDE 400MG TAB (MAG-OX) PO SCH (07:35)
[2022-07-14] MEDS: REMEDY PHYTOPLEX Z-GUARD PASTE 113GM TUBE (FROM STOREROOM PRODUCT) TOP SCH ×3 (07:35→20:16)
[2022-07-14 14:00] VITALS: BP 123/55
[2022-07-14 20:00] VITALS: BP 145/63
[2022-07-14] MEDS: SENNA 8.6 MG TAB (SENOKOT) PO SCH (20:15)
[2022-07-14] MEDS: traZODone 25MG PER 1/2 TABLET PO SCH (20:15)
[2022-07-15 06:00] VITALS: BP_SYST 176; BP_DIAS 72; BP_DIAS 76
[2022-07-15] MEDS: ACETAMINOPHEN 650MG ER TAB (TYLENOL ARTHRITIS) PO SCH ×3 (06:29→21:06)
[2022-07-15 06:36] LABS: BASO % 0.5 % (0.0-1.0); EOS # 0.2 10^3/uL (0.0-0.5); EOS % 2.6 % (0.0-3.0); HEMATOCRIT 30.8 % (36.0-47.0); HEMOGLOBIN 9.5 g/dl (12.0-15.5); LYMPH # 2.8 10^3/uL (1.5-5.0); LYMPH % 42.3 % (24.0-44.0); MEAN CORPUSCULAR HEMOGLOBIN 30.3 pg (27.0-33.0); MEAN CORPUSCULAR HGB CONC 30.8 g/dl (32.0-36.5); MEAN CORPUSCULAR VOLUME 98.1 fl (80.0-96.0); MONO # 0.5 10^3/uL (0.0-0.8); MONO % 7.8 % (2.0-8.0); NEUTROPHILS % 46.3 % (36.0-66.0); PLATELET COUNT, AUTOMATED 335 10^3/uL (150-450); RED BLOOD COUNT 3.14 10^6/uL (4.00-5.40); WHITE BLOOD COUNT 6.5 10^3/uL (4.0-10.0)
[2022-07-15 07:00] LABS: CALCIUM LEVEL 9.3 MG/DL (8.3-10.6); CREATININE FOR GFR 0.98 MG/DL (0.55-1.30); GLOMERULAR FILTRATION RATE 57.2 (>32); POTASSIUM SERUM 4.2 MMOL/L (3.5-5.1)
[2022-07-15] MEDS: REMEDY PHYTOPLEX Z-GUARD PASTE 113GM TUBE (FROM STOREROOM PRODUCT) TOP SCH ×3 (09:00→21:00)
[2022-07-15] MEDS: DOCUSATE SODIUM 100MG CAPSULE PO SCH ×2 (09:09→21:00)
[2022-07-15] MEDS: PANTOPRAZOLE 40MG TAB (PROTONIX) PO SCH ×2 (09:09→21:03)
[2022-07-15] MEDS: VENLAFAXINE **XR** 37.5 MG CAPSULE PO SCH (09:09)
[2022-07-15] MEDS: SUCRALFATE 1 GM TAB PO SCH ×3 (09:09→17:51)
[2022-07-15] MEDS: LACTOBACILLUS ACIDOPHILUS CAP (BACID) PO SCH ×2 (09:10→17:51)
[2022-07-15] MEDS: MAGNESIUM OXIDE 400MG TAB (MAG-OX) PO SCH (09:10)
[2022-07-15] MEDS: CitaloPRAM (CeleXA) 20 MG TAB PO SCH (09:10)
[2022-07-15] MEDS: ASPIRIN 81MG ENTERIC TABLET PO SCH (09:10)
[2022-07-15] MEDS: predniSONE 20 MG TAB PO SCH (09:10)
[2022-07-15] MEDS: LIDOCAINE 5% (LIDODERM) PATCH TD SCH (09:11)
[2022-07-15 14:00] VITALS: BP 124/58
[2022-07-15] MEDS: **hydrALAZINE HCL** 25 MG TAB PO SCH ×2 (14:24→21:04)
[2022-07-15 20:00] VITALS: BP 130/63
[2022-07-15] MEDS: SENNA 8.6 MG TAB (SENOKOT) PO SCH (21:00)
[2022-07-15] MEDS: traZODone 25MG PER 1/2 TABLET PO SCH (21:03)
[2022-07-16] MEDS: ACETAMINOPHEN 650MG ER TAB (TYLENOL ARTHRITIS) PO SCH ×3 (05:22→21:00)
[2022-07-16] MEDS: **hydrALAZINE HCL** 25 MG TAB PO SCH ×3 (05:23→21:00)
[2022-07-16 06:00] VITALS: BP 158/58
[2022-07-16] MEDS: DOCUSATE SODIUM 100MG CAPSULE PO SCH ×2 (08:29→21:00)
[2022-07-16] MEDS: MAGNESIUM OXIDE 400MG TAB (MAG-OX) PO SCH (08:29)
[2022-07-16] MEDS: SUCRALFATE 1 GM TAB PO SCH ×3 (08:29→18:11)
[2022-07-16] MEDS: CitaloPRAM (CeleXA) 20 MG TAB PO SCH (08:29)
[2022-07-16] MEDS: LACTOBACILLUS ACIDOPHILUS CAP (BACID) PO SCH ×2 (08:29→18:11)
[2022-07-16] MEDS: VENLAFAXINE **XR** 37.5 MG CAPSULE PO SCH (08:29)
[2022-07-16] MEDS: ASPIRIN 81MG ENTERIC TABLET PO SCH (08:29)
[2022-07-16] MEDS: predniSONE 20 MG TAB PO SCH (08:30)
[2022-07-16] MEDS: PANTOPRAZOLE 40MG TAB (PROTONIX) PO SCH ×2 (08:30→21:00)
[2022-07-16] MEDS: LIDOCAINE 5% (LIDODERM) PATCH TD SCH (08:31)
[2022-07-16] MEDS: REMEDY PHYTOPLEX Z-GUARD PASTE 113GM TUBE (FROM STOREROOM PRODUCT) TOP SCH ×3 (08:32→21:00)
[2022-07-16 14:04] VITALS: BP 149/60
[2022-07-16 20:00] VITALS: BP 136/63
[2022-07-16] MEDS: SENNA 8.6 MG TAB (SENOKOT) PO SCH (21:00)
[2022-07-16] MEDS: traZODone 25MG PER 1/2 TABLET PO SCH (21:00)
[2022-07-17 05:58] VITALS: BP 120/70
[2022-07-17] MEDS: **hydrALAZINE HCL** 25 MG TAB PO SCH ×3 (06:11→21:12)
[2022-07-17] MEDS: ACETAMINOPHEN 650MG ER TAB (TYLENOL ARTHRITIS) PO SCH ×3 (06:11→21:12)
[2022-07-17] MEDS: LIDOCAINE 5% (LIDODERM) PATCH TD SCH (08:46)
[2022-07-17] MEDS: VENLAFAXINE **XR** 37.5 MG CAPSULE PO SCH (08:47)
[2022-07-17] MEDS: MAGNESIUM OXIDE 400MG TAB (MAG-OX) PO SCH (08:47)
[2022-07-17] MEDS: LACTOBACILLUS ACIDOPHILUS CAP (BACID) PO SCH ×2 (08:47→18:07)
[2022-07-17] MEDS: CitaloPRAM (CeleXA) 20 MG TAB PO SCH (08:47)
[2022-07-17] MEDS: DOCUSATE SODIUM 100MG CAPSULE PO SCH ×2 (08:47→21:00)
[2022-07-17] MEDS: PANTOPRAZOLE 40MG TAB (PROTONIX) PO SCH ×2 (08:47→20:37)
[2022-07-17] MEDS: SUCRALFATE 1 GM TAB PO SCH ×3 (08:47→18:07)
[2022-07-17] MEDS: ASPIRIN 81MG ENTERIC TABLET PO SCH (08:47)
[2022-07-17] MEDS: REMEDY PHYTOPLEX Z-GUARD PASTE 113GM TUBE (FROM STOREROOM PRODUCT) TOP SCH ×3 (08:50→21:00)
[2022-07-17 14:00] VITALS: BP 146/65
[2022-07-17 20:00] VITALS: BP 145/63
[2022-07-17] MEDS: traZODone 25MG PER 1/2 TABLET PO SCH (20:37)
[2022-07-17] MEDS: SENNA 8.6 MG TAB (SENOKOT) PO SCH (21:00)
[2022-07-18] MEDS: ACETAMINOPHEN 650MG ER TAB (TYLENOL ARTHRITIS) PO SCH (05:44)
[2022-07-18] MEDS: **hydrALAZINE HCL** 25 MG TAB PO SCH (05:46)
[2022-07-18 06:00] VITALS: BP 162/82
[2022-07-18] MEDS: CitaloPRAM (CeleXA) 20 MG TAB PO SCH (08:49)
[2022-07-18] MEDS: MAGNESIUM OXIDE 400MG TAB (MAG-OX) PO SCH (08:49)
[2022-07-18] MEDS: VENLAFAXINE **XR** 37.5 MG CAPSULE PO SCH (08:49)
[2022-07-18] MEDS: LACTOBACILLUS ACIDOPHILUS CAP (BACID) PO SCH (08:49)
[2022-07-18] MEDS: SUCRALFATE 1 GM TAB PO SCH (08:49)
[2022-07-18] MEDS: PANTOPRAZOLE 40MG TAB (PROTONIX) PO SCH (08:49)
[2022-07-18] MEDS: ASPIRIN 81MG ENTERIC TABLET PO SCH (08:49)
[2022-07-18 08:50] VITALS: BP 162/82
[2022-07-18] MEDS: REMEDY PHYTOPLEX Z-GUARD PASTE 113GM TUBE (FROM STOREROOM PRODUCT) TOP SCH (08:50)
[2022-07-18] MEDS: DOCUSATE SODIUM 100MG CAPSULE PO SCH (08:50)
[2022-07-18] MEDS: LIDOCAINE 5% (LIDODERM) PATCH TD SCH (08:51)
[2022-07-18] MEDS ORDERED: PANT40TA29 PO (09:41)
[2022-07-18] MEDS ORDERED: SUCR1TA PO (09:41)
[2022-07-18] MEDS ORDERED: VENL37.598 PO (09:41)
[2022-07-18] MEDS ORDERED: LISI20TA33 PO (09:41)
[2022-07-18] MEDS ORDERED: CELE20TA PO (09:41)
[2022-07-18] MEDS ORDERED: HYDR25TA PO (09:43)
== END 2022-07-18 12:45 | disposition home health service (06) | DRG 949 ==
LOC: M PM&R 13:37
PROVIDERS: ADMIT Physical Medicine & Rehabilitation; ATTEND Physical Medicine & Rehabilitation
DX: S70.01XD Contusion of right hip, subsequent encounter (principal); G93.41 Metabolic encephalopathy; N17.9 Acute kidney failure, unspecified; N39.0 Urinary tract infection, site not specified; R26.2 Difficulty in walking, not elsewhere classified; I11.0 Hypertensive heart disease with heart failure; D64.9 Anemia, unspecified; F32.A Depression, unspecified; E78.5 Hyperlipidemia, unspecified; K21.9 Gastro-esophageal reflux disease without esophagitis; K57.90 Diverticulosis of intestine, part unspecified, without perforation or abscess without bleeding; G25.81 Restless legs syndrome; Z85.828 Personal history of other malignant neoplasm of skin; S22.31XD Fracture of one rib, right side, subsequent encounter for fracture with routine healing; Z74.09 Other reduced mobility; Z74.1 Need for assistance with personal care; R13.10 Dysphagia, unspecified; R44.1 Visual hallucinations; Z98.41 Cataract extraction status, right eye; Z98.42 Cataract extraction status, left eye; Z96.651 Presence of right artificial knee joint; Z86.73 Personal history of transient ischemic attack (TIA), and cerebral infarction without residual deficits; I50.9 Heart failure, unspecified; I25.10 Atherosclerotic heart disease of native coronary artery without angina pectoris; M10.9 Gout, unspecified; Z79.82 Long term (current) use of aspirin; Z79.52 Long term (current) use of systemic steroids; Z79.899 Other long term (current) drug therapy

== ENCOUNTER → 2022-08-30 | Outpatient (REF) | payer MEDICARE, OTHER ==
[~2022-08-30] MED LIST changes: +HYDR25TA PO; +PANT40TA29 PO; +SUCR1TA PO
== END ==
LOC: M SFHCCAPE 12:04
PROVIDERS: ATTEND Physician Assistant
DX: K92.1 Melena (principal)

== ENCOUNTER → 2022-10-19 | Outpatient (REF) | payer OTHER, MEDICARE ==
[~2022-10-19] MED LIST changes: -K-TA10TA2 PO; +POTA-165 PO
== END ==
LOC: M LAB REF 17:27
PROVIDERS: ATTEND Plastic Surgery Surgery of the Hand
DX: D48.5 Neoplasm of uncertain behavior of skin (principal)

== ENCOUNTER → 2023-02-16 | Outpatient (REF) | payer MEDICARE, OTHER ==
[2023-02-16 17:54] LABS: BASO % 0.6 % (0.0-1.0); EOS # 0.2 10^3/uL (0.0-0.5); EOS % 3.9 % (0.0-3.0); HEMATOCRIT 36.3 % (36.0-47.0); HEMOGLOBIN 11.8 g/dl (12.0-15.5); LYMPH # 1.6 10^3/uL (1.5-5.0); LYMPH % 31.8 % (24.0-44.0); MEAN CORPUSCULAR HGB CONC 32.5 g/dl (32.0-36.5); MEAN CORPUSCULAR VOLUME 95.3 fl (80.0-96.0); MONO # 0.5 10^3/uL (0.0-0.8); MONO % 9.6 % (2.0-8.0); NEUTROPHILS # 2.6 10^3/uL (1.5-8.5); NEUTROPHILS % 53.9 % (36.0-66.0); PLATELET COUNT, AUTOMATED 335 10^3/uL (150-450); RED BLOOD COUNT 3.81 10^6/uL (4.00-5.40); WHITE BLOOD COUNT 4.9 10^3/uL (4.0-10.0)
[2023-02-16 18:09] LABS: ALBUMIN 3.1 G/DL (3.2-5.2); ALKALINE PHOSPHATASE 82 U/L (46-116); ALT/SGPT 12 U/L (7.0-40); AST/SGOT 15 U/L (<34); BILIRUBIN,TOTAL 0.2 MG/DL (0.3-1.2); BLOOD UREA NITROGEN 28 MG/DL (9-23); CALCIUM LEVEL 8.9 MG/DL (8.3-10.6); CARBON DIOXIDE LEVEL 30 MMOL/L (20-31); CHLORIDE LEVEL 105 MMOL/L (98-107); CREATININE FOR GFR 0.93 MG/DL (0.55-1.30); GLOMERULAR FILTRATION RATE > 60.0 (>32); GLUCOSE, FASTING 85 MG/DL (74-106); POTASSIUM SERUM 4.8 MMOL/L (3.5-5.1); SODIUM LEVEL 142 MMOL/L (136-145); TOTAL PROTEIN 6.6 G/DL (5.7-8.2)
[2023-02-16 18:10] LABS: HEMOGLOBIN A1c 5.8 % (4.0-6.0)
[2023-02-16 18:13] LABS: THYROID STIMULATING HORMONE 0.226 uIU/ML (0.55-4.78)
[2023-02-16 18:14] LABS: FOLATE 9.2 NG/ML (>5.4); TOTAL 25(OH) VITAMIN D 21.7 NG/ML (20.0-100.0); VITAMIN B12 LEVEL 445 PG/ML (211-911)
== END ==
LOC: M SFHCCAPE 09:57
PROVIDERS: ATTEND Physician Assistant Medical
DX: N30.01 Acute cystitis with hematuria (principal); R41.3 Other amnesia; R30.0 Dysuria; R06.02 Shortness of breath; Z79.899 Other long term (current) drug therapy

== ENCOUNTER → 2023-02-17 | Outpatient (CLI) | payer MEDICARE, OTHER | LOC: M CLY 12:03 | PROVIDERS: ATTEND Physician Assistant Medical | DX: R06.02 Shortness of breath (principal); I51.7 Cardiomegaly ==

== ENCOUNTER → 2023-03-08 | Outpatient (REF) | payer MEDICARE, OTHER ==
[2023-03-08 17:46] LABS: CALCIUM LEVEL 8.5 MG/DL (8.3-10.6); CREATININE FOR GFR 0.99 MG/DL (0.55-1.30); GLOMERULAR FILTRATION RATE 56.5 (>32); MAGNESIUM LEVEL 1.5 MG/DL (1.8-2.4)
== END ==
LOC: M SFHCCAPE 11:01
PROVIDERS: ATTEND Physician Assistant Medical
DX: I50.32 Chronic diastolic (congestive) heart failure (principal)

== ENCOUNTER 2023-03-20 12:11 | Inpatient (IN) | payer MEDICARE, OTHER ==
[~2023-03-20] VITALS: Ht 165.1 cm; Wt 50.2 kg
[2023-03-20] MEDS ORDERED: CARV3.12 PO (12:32)
[2023-03-20] MEDS ORDERED: OXYB5TAB11 PO (12:32)
[2023-03-20] MEDS ORDERED: FURO20TA2 PO (12:32)
[2023-03-20 13:08] LABS: BASO # 0.1 10^3/uL (0.0-0.2); BASO % 0.5 % (0.0-1.0); EOS % 0.4 % (0.0-3.0); HEMATOCRIT 44.5 % (36.0-47.0); LYMPH # 1.1 10^3/uL (1.5-5.0); LYMPH % 11.7 % (24.0-44.0); MEAN CORPUSCULAR HEMOGLOBIN 28.7 pg (27.0-33.0); MEAN CORPUSCULAR HGB CONC 31.5 g/dl (32.0-36.5); MEAN CORPUSCULAR VOLUME 91.2 fl (80.0-96.0); MONO # 1.3 10^3/uL (0.0-0.8); MONO % 13.9 % (2.0-8.0); NEUTROPHILS # 6.7 10^3/uL (1.5-8.5); NEUTROPHILS % 73.2 % (36.0-66.0); PLATELET COUNT, AUTOMATED 472 10^3/uL (150-450); RED BLOOD COUNT 4.88 10^6/uL (4.00-5.40); WHITE BLOOD COUNT 9.1 10^3/uL (4.0-10.0)
[2023-03-20 13:36] LABS: RSV AMPLIFICATION NEGATIVE (NEGATIVE)
[2023-03-20 13:38] LABS: ALBUMIN 3.5 G/DL (3.2-5.2); ALKALINE PHOSPHATASE 98 U/L (46-116); ALT/SGPT 17 U/L (7.0-40); AST/SGOT 22 U/L (<34); BILIRUBIN,DIRECT < 0.1 MG/DL (<0.4); BILIRUBIN,TOTAL 0.3 MG/DL (0.3-1.2); BLOOD UREA NITROGEN 22 MG/DL (9-23); CALCIUM LEVEL 9.3 MG/DL (8.3-10.6); CARBON DIOXIDE LEVEL 33 MMOL/L (20-31); CHLORIDE LEVEL 96 MMOL/L (98-107); CK-MB VALUE MASS 1.2 NG/ML (<3.6); CPK CREATINE PHOSPHOKINASE 274 U/L (34-145); CREATININE FOR GFR 0.84 MG/DL (0.55-1.30); GLOMERULAR FILTRATION RATE > 60.0 (>32); GLUCOSE, FASTING 132 MG/DL (74-106); MB/CK RELATIVE INDEX 0.43 (< OR =4); POTASSIUM SERUM 4.2 MMOL/L (3.5-5.1); SODIUM LEVEL 136 MMOL/L (136-145); THYROID STIMULATING HORMONE 0.147 uIU/ML (0.55-4.78); TOTAL PROTEIN 7.7 G/DL (5.7-8.2)
[2023-03-20 13:54] LABS: APPEARANCE, URINE CLEAR (CLEAR); BACTERIA, URINE AUTO NEGATIVE (NEGATIVE); BILIRUBIN, URINE AUTO NEGATIVE (NEGATIVE); BLOOD, URINE BLOOD 1+ (NEGATIVE); COLOR, URINE YELLOW (YELLOW); GLUCOSE, URINE (UA) AUTO NEGATIVE (NEGATIVE); KETONE, URINE AUTO NEGATIVE (NEGATIVE); LEUKOCYTE ESTERASE, URINE AUTO NEGATIVE (NEGATIVE); NITRITE, URINE AUTO NEGATIVE (NEGATIVE); PROTEIN, URINE AUTO 3+ mg/dL (NEGATIVE); RBC, URINE AUTO 6 /HPF (0-3); SPECIFIC GRAVITY URINE AUTO 1.016 (1.002-1.035); SQUAMOUS EPITHELIAL CELL UR AU 1 /HPF (0-6); UROBILINOGEN, URINE AUTO 0.2 mg/dL (0.0-2.0); WBC, URINE AUTO 1 /HPF (0-3)
[2023-03-20] MEDS ORDERED: ACETAMINOPHEN TAB 650MG DOSE (2X325MG) PO ONE (15:25)
[2023-03-20] MEDS ORDERED: cefTRIAXone SOD 2 GM in D5W MINI-BAG PLUS 50 ML IV ONE (15:30)
[2023-03-20 16:30] LABS: MB/CK RELATIVE INDEX 0.32 (< OR =4)
[2023-03-20] MEDS ORDERED: AZITHROMYCIN INJ 500 MG, VIAL MATE ADAPTER 1 EACH in D5W 250 ML IV ONE (16:40)
[2023-03-20] MEDS ORDERED: ONDANSETRON 4MG 2ML VIAL IV ONE (16:55)
[2023-03-20] MEDS ORDERED: NS 1,000 ML IV ONE (17:05)
[2023-03-20] MEDS ORDERED: MAALOX 30 ML SUSP *UDC PO PRN (17:10)
[2023-03-20] MEDS ORDERED: MOM 30ML SUSPENSION UDC PO PRN (17:10)
[2023-03-20] MEDS ORDERED: ACETAMINOPHEN TAB 650MG DOSE (2X325MG) PO PRN (17:10)
[2023-03-20 19:08] LABS: THYROXINE (T4) 6.9 UG/DL (4.5-10.9)
[2023-03-20 19:09] LABS: FREE T4 1.16 NG/DL (0.89-1.76)
[2023-03-20 19:13] LABS: PROCALCITONIN 0.06 ng/ml
[2023-03-20] MEDS ORDERED: REMDESIVIR 200 MG in NS 250 ML IV ONE (20:00)
[2023-03-20 20:15] VITALS: BP 126/68; TEMP 98.1; O2SAT 89
[2023-03-20] MEDS ORDERED: VENL75CA47 PO (21:00)
[2023-03-20] MEDS ORDERED: VITA200012 PO (21:01)
[2023-03-20] MEDS ORDERED: HOME MED LIST COMPLETE! XX SCH (21:05)
[2023-03-20 22:35] VITALS: O2SAT 96
[2023-03-21 05:07] VITALS: BP 153/80; TEMP 98.1; O2SAT 96
[2023-03-21 05:43] LABS: HEMATOCRIT 37.4 % (36.0-47.0); MEAN CORPUSCULAR HEMOGLOBIN 28.7 pg (27.0-33.0); MEAN CORPUSCULAR HGB CONC 31.8 g/dl (32.0-36.5); MEAN CORPUSCULAR VOLUME 90.3 fl (80.0-96.0); RED BLOOD COUNT 4.14 10^6/uL (4.00-5.40); WHITE BLOOD COUNT 4.9 10^3/uL (4.0-10.0)
[2023-03-21 05:50] LABS: HEMOGLOBIN 11.9 g/dl (12.0-15.5)
[2023-03-21 05:51] LABS: PLATELET COUNT, AUTOMATED 372 10^3/uL (150-450)
[2023-03-21 06:09] LABS: BLOOD UREA NITROGEN 26 MG/DL (9-23); CALCIUM LEVEL 8.5 MG/DL (8.3-10.6); CARBON DIOXIDE LEVEL 30 MMOL/L (20-31); CHLORIDE LEVEL 104 MMOL/L (98-107); CREATININE FOR GFR 0.91 MG/DL (0.55-1.30); GLOMERULAR FILTRATION RATE > 60.0 (>32); GLUCOSE, FASTING 114 MG/DL (74-106); POTASSIUM SERUM 4.3 MMOL/L (3.5-5.1); SODIUM LEVEL 143 MMOL/L (136-145)
[2023-03-21] MEDS: PANTOPRAZOLE 40MG TAB (PROTONIX) PO SCH (08:54)
[2023-03-21] MEDS: HEPARIN SOD (PORCINE) 5000UNITS/ML 1ML VIAL/SYRINGE SQ SCH ×2 (08:54→20:11)
[2023-03-21] MEDS: FUROSEMIDE 20 MG TAB PO SCH (08:55)
[2023-03-21] MEDS: VENLAFAXINE **XR** 75MG CAPSULE PO SCH (08:55)
[2023-03-21] MEDS: CARVedilol 3.125 MG TAB PO SCH ×2 (08:55→20:12)
[2023-03-21] MEDS: AZITHROMYCIN 250MG TABLET PO SCH (08:55)
[2023-03-21] MEDS: oxyBUTYnin 5 MG TAB PO SCH (08:55)
[2023-03-21] MEDS ORDERED: ENOXAPARIN 40MG/0.4ML SYRINGE (J1650 PER 10MG) SC SCH (09:00)
[2023-03-21 14:00] VITALS: BP 152/77; TEMP 98.8; O2SAT 91
[2023-03-21] MEDS ORDERED: ONDANSETRON 4MG 2ML VIAL IV PRN (14:05)
[2023-03-21] MEDS: REMDESIVIR 100 MG in NS 250 ML IV SCH (20:11)
[2023-03-21 20:14] VITALS: BP 159/74; TEMP 98.6; O2SAT 94
[2023-03-22 05:44] VITALS: BP 162/68; TEMP 98.6; O2SAT 95
[2023-03-22] MEDS: AZITHROMYCIN 250MG TABLET PO SCH (08:54)
[2023-03-22] MEDS: HEPARIN SOD (PORCINE) 5000UNITS/ML 1ML VIAL/SYRINGE SQ SCH ×2 (08:54→20:18)
[2023-03-22] MEDS: PANTOPRAZOLE 40MG TAB (PROTONIX) PO SCH (08:55)
[2023-03-22] MEDS: FUROSEMIDE 20 MG TAB PO SCH (08:55)
[2023-03-22] MEDS: oxyBUTYnin 5 MG TAB PO SCH (08:55)
[2023-03-22] MEDS: CARVedilol 3.125 MG TAB PO SCH ×2 (08:55→20:19)
[2023-03-22] MEDS: VENLAFAXINE **XR** 75MG CAPSULE PO SCH (08:55)
[2023-03-22 14:00] VITALS: BP 155/73; TEMP 98.1; O2SAT 96
[2023-03-22 16:12] LABS: MYCOPLASMA PNEUMONIAE IgG 124 U/mL (0-99); MYCOPLASMA PNEUMONIAE IgM <770 U/mL (0-769)
[2023-03-22] MEDS: REMDESIVIR 100 MG in NS 250 ML IV SCH (20:19)
[2023-03-22 20:30] VITALS: BP 158/72; TEMP 98.6; O2SAT 96
[2023-03-23 05:04] VITALS: BP 172/58; TEMP 98.1; O2SAT 94
[2023-03-23 06:37] VITALS: BP 174/60
[2023-03-23] MEDS: CARVedilol 3.125 MG TAB PO SCH ×2 (08:10→22:12)
[2023-03-23] MEDS: PANTOPRAZOLE 40MG TAB (PROTONIX) PO SCH (08:43)
[2023-03-23] MEDS: HEPARIN SOD (PORCINE) 5000UNITS/ML 1ML VIAL/SYRINGE SQ SCH ×2 (08:43→22:07)
[2023-03-23] MEDS: AZITHROMYCIN 250MG TABLET PO SCH (08:43)
[2023-03-23] MEDS: FUROSEMIDE 20 MG TAB PO SCH (08:49)
[2023-03-23] MEDS: VENLAFAXINE **XR** 75MG CAPSULE PO SCH (08:50)
[2023-03-23] MEDS: oxyBUTYnin 5 MG TAB PO SCH (08:50)
[2023-03-23 08:58] VITALS: BP 132/68
[2023-03-23 14:00] VITALS: BP 138/83; TEMP 97.7; O2SAT 96
[2023-03-23] MEDS ORDERED: SENOKOT S TAB PO PRN (15:35)
[2023-03-23 20:00] VITALS: BP 146/59; TEMP 97.5; O2SAT 93
[2023-03-24 06:00] VITALS: BP 177/76; TEMP 97.2; O2SAT 96
[2023-03-24 06:51] VITALS: BP 177/79
[2023-03-24] MEDS: CARVedilol 3.125 MG TAB PO SCH (06:51)
[2023-03-24] MEDS: HEPARIN SOD (PORCINE) 5000UNITS/ML 1ML VIAL/SYRINGE SQ SCH (09:00)
[2023-03-24 10:00] VITALS: BP 160/62
[2023-03-24] MEDS: VENLAFAXINE **XR** 75MG CAPSULE PO SCH (10:45)
[2023-03-24] MEDS: oxyBUTYnin 5 MG TAB PO SCH (10:45)
[2023-03-24] MEDS: FUROSEMIDE 20 MG TAB PO SCH (10:46)
[2023-03-24] MEDS: PANTOPRAZOLE 40MG TAB (PROTONIX) PO SCH (10:46)
== END 2023-03-24 12:45 | disposition home health service (06) | DRG 871 ==
LOC: EDBD 12:11 → M ED 12:11 → M ED INP 17:06 → M MSPAV 20:08
PROVIDERS: ADMIT Student in an Organized Health Care Education/Training Program; ATTEND Student in an Organized Health Care Education/Training Program
PROC: 3E0333Z Introduction of Anti-inflammatory into Peripheral Vein, Percutaneous Approach (ICD-10-PCS; principal; 2023-03-20)
PROC: XW033E5 Introduction of Remdesivir Anti-infective into Peripheral Vein, Percutaneous Approach, New Technology Group 5 (ICD-10-PCS; 2023-03-20)
DX: A41.9 Sepsis, unspecified organism (principal); U07.1 COVID-19; J12.82 Pneumonia due to coronavirus disease 2019; E87.20 Acidosis, unspecified; I50.32 Chronic diastolic (congestive) heart failure; E78.5 Hyperlipidemia, unspecified; I11.0 Hypertensive heart disease with heart failure; K21.9 Gastro-esophageal reflux disease without esophagitis; M19.90 Unspecified osteoarthritis, unspecified site; F32.A Depression, unspecified; Z85.828 Personal history of other malignant neoplasm of skin; G25.81 Restless legs syndrome; K44.9 Diaphragmatic hernia without obstruction or gangrene; Z90.79 Acquired absence of other genital organ(s); Z96.651 Presence of right artificial knee joint; Z79.899 Other long term (current) drug therapy

== ENCOUNTER → 2023-04-04 | Outpatient (REF) | payer MEDICARE, OTHER ==
[~2023-04-04] MED LIST changes: +CARV3.12 PO; +OXYB5TAB11 PO; +VENL75CA47 PO; +VITA200012 PO
[2023-04-04 17:43] LABS: BASO % 0.7 % (0.0-1.0); EOS # 0.1 10^3/uL (0.0-0.5); EOS % 2.2 % (0.0-3.0); HEMATOCRIT 38.9 % (36.0-47.0); HEMOGLOBIN 12.3 g/dl (12.0-15.5); LYMPH # 1.7 10^3/uL (1.5-5.0); LYMPH % 29.2 % (24.0-44.0); MEAN CORPUSCULAR HEMOGLOBIN 29.6 pg (27.0-33.0); MEAN CORPUSCULAR HGB CONC 31.6 g/dl (32.0-36.5); MEAN CORPUSCULAR VOLUME 93.7 fl (80.0-96.0); MONO # 0.6 10^3/uL (0.0-0.8); MONO % 9.5 % (2.0-8.0); NEUTROPHILS # 3.4 10^3/uL (1.5-8.5); NEUTROPHILS % 58.1 % (36.0-66.0); PLATELET COUNT, AUTOMATED 335 10^3/uL (150-450); RED BLOOD COUNT 4.15 10^6/uL (4.00-5.40); WHITE BLOOD COUNT 5.9 10^3/uL (4.0-10.0)
[2023-04-04 18:06] LABS: PERCENT SATURATION 22.1 % (13.2-45.0)
[2023-04-04 18:07] LABS: ALBUMIN 3.3 G/DL (3.2-5.2); BILIRUBIN,TOTAL 0.3 MG/DL (0.3-1.2); CALCIUM LEVEL 9.4 MG/DL (8.3-10.6); CREATININE FOR GFR 1.09 MG/DL (0.55-1.30); GLOMERULAR FILTRATION RATE 50.5 (>32); MAGNESIUM LEVEL 1.8 MG/DL (1.8-2.4); POTASSIUM SERUM 4.4 MMOL/L (3.5-5.1); TOTAL PROTEIN 6.6 G/DL (5.7-8.2)
[2023-04-04 18:09] LABS: FERRITIN 32.3 NG/ML (7.3-270.7)
== END ==
LOC: M SFHCCAPE 11:02
PROVIDERS: ATTEND Physician Assistant Medical
DX: I10 Essential (primary) hypertension (principal); E83.42 Hypomagnesemia; D64.9 Anemia, unspecified

== ENCOUNTER → 2023-04-13 | Outpatient (REF) | payer MEDICARE, OTHER ==
[2023-04-13 18:37] LABS: APPEARANCE, URINE CLEAR (CLEAR); BACTERIA, URINE AUTO NEGATIVE (NEGATIVE); BILIRUBIN, URINE AUTO NEGATIVE (NEGATIVE); BLOOD, URINE BLOOD NEGATIVE (NEGATIVE); COLOR, URINE YELLOW (YELLOW); GLUCOSE, URINE (UA) AUTO NEGATIVE (NEGATIVE); KETONE, URINE AUTO NEGATIVE (NEGATIVE); LEUKOCYTE ESTERASE, URINE AUTO TRACE (NEGATIVE); NITRITE, URINE AUTO NEGATIVE (NEGATIVE); PROTEIN, URINE AUTO NEGATIVE (NEGATIVE); RBC, URINE AUTO 0 /HPF (0-3); SPECIFIC GRAVITY URINE AUTO 1.011 (1.002-1.035); SQUAMOUS EPITHELIAL CELL UR AU 1 /HPF (0-6); UROBILINOGEN, URINE AUTO 0.2 mg/dL (0.0-2.0); WBC, URINE AUTO 4 /HPF (0-3)
== END ==
LOC: M SMT 17:03
PROVIDERS: ATTEND Physician Assistant
DX: R41.0 Disorientation, unspecified (principal)

== ENCOUNTER 2023-05-30 12:59 | Inpatient (IN) | payer MEDICARE, OTHER ==
[~2023-05-30] VITALS: Ht 170.2 cm; Wt 53.0 kg
[~2023-05-30 12:59] MED LIST changes: -HYDR25TA PO; +HYDR25TA88 PO; -OXYB5TAB11 PO; +OXYB5TAB14 PO
[2023-05-30] MEDS ORDERED: ISOVUE-370 76% 100ML VIAL As Ordered ONE (13:29)
[2023-05-30 13:37] LABS: BASO % 0.7 % (0.0-1.0); EOS # 0.3 10^3/uL (0.0-0.5); EOS % 6.1 % (0.0-3.0); HEMATOCRIT 37.4 % (36.0-47.0); HEMOGLOBIN 11.7 g/dl (12.0-15.5); LYMPH # 1.5 10^3/uL (1.5-5.0); LYMPH % 26.9 % (24.0-44.0); MEAN CORPUSCULAR HEMOGLOBIN 28.5 pg (27.0-33.0); MEAN CORPUSCULAR HGB CONC 31.3 g/dl (32.0-36.5); MONO # 0.8 10^3/uL (0.0-0.8); MONO % 14.5 % (2.0-8.0); NEUTROPHILS # 2.9 10^3/uL (1.5-8.5); NEUTROPHILS % 51.4 % (36.0-66.0); PLATELET COUNT, AUTOMATED 336 10^3/uL (150-450); RED BLOOD COUNT 4.11 10^6/uL (4.00-5.40); WHITE BLOOD COUNT 5.6 10^3/uL (4.0-10.0)
[2023-05-30 13:49] LABS: PROTHROMBIN TIME 12.9 SECONDS (12.5-14.5)
[2023-05-30 13:50] LABS: PARTIAL THROMBOPLASTIN TIME 26.4 SECONDS (24.8-34.2)
[2023-05-30] MEDS: NS 500 ML IV ONE (13:59)
[2023-05-30 14:04] LABS: C REACTIVE PROTEIN QUANTITATIV < 0.40 MG/DL (<1.0)
[2023-05-30 14:05] LABS: ALBUMIN 3.2 G/DL (3.2-5.2); ALKALINE PHOSPHATASE 82 U/L (46-116); ALT/SGPT 11 U/L (7.0-40); AST/SGOT 11 U/L (<34); BILIRUBIN,DIRECT < 0.1 MG/DL (<0.4); BILIRUBIN,TOTAL 0.2 MG/DL (0.3-1.2); BLOOD UREA NITROGEN 38 MG/DL (9-23); CALCIUM LEVEL 8.6 MG/DL (8.3-10.6); CARBON DIOXIDE LEVEL 29 MMOL/L (20-31); CHLORIDE LEVEL 105 MMOL/L (98-107); CK-MB VALUE MASS < 1.0 NG/ML (<3.6); FREE T4 0.97 NG/DL (0.89-1.76); GLOMERULAR FILTRATION RATE 55.8 (>32); GLUCOSE, FASTING 109 MG/DL (74-106); POTASSIUM SERUM 4.5 MMOL/L (3.5-5.1); SODIUM LEVEL 141 MMOL/L (136-145); THYROID STIMULATING HORMONE 0.251 uIU/ML (0.55-4.78); TOTAL PROTEIN 6.4 G/DL (5.7-8.2)
[2023-05-30 14:09] LABS: CPK CREATINE PHOSPHOKINASE 64 U/L (34-145); MB/CK RELATIVE INDEX 1.56 (< OR =4)
[2023-05-30 14:23] LABS: RSV AMPLIFICATION NEGATIVE (NEGATIVE)
[2023-05-30] MEDS: hydrALAZINE 20MG/ML 1ML VIAL IV ONE (15:09)
[2023-05-30] MEDS: ASPIRIN 81MG CHEW TABLET PO ONE (16:06)
[2023-05-30] MEDS ORDERED: PANT-23 PO (16:37)
[2023-05-30] MEDS ORDERED: GLUC1TAB58 PO (16:37)
[2023-05-30] MEDS ORDERED: HOME MED LIST COMPLETE! XX SCH (16:40)
[2023-05-30 17:44] VITALS: BP 198/74; TEMP 96.4; O2SAT 96
[2023-05-30] MEDS: **hydrALAZINE HCL** 25 MG TAB PO SCH (18:03)
[2023-05-30 18:45] VITALS: BP 180/78
[2023-05-30 20:14] VITALS: BP 164/70; TEMP 98.1; O2SAT 95
[2023-05-30 23:14] VITALS: BP 168/75; TEMP 97.3; O2SAT 94
[2023-05-31] VITALS (7 sets, daily range): BP systolic 148–182; BP diastolic 64–82; TEMP 97.4–98; O2SAT 91–99
[2023-05-31 05:44] LABS: BASO # 0.1 10^3/uL (0.0-0.2); BASO % 0.8 % (0.0-1.0); EOS # 0.5 10^3/uL (0.0-0.5); EOS % 7.6 % (0.0-3.0); HEMATOCRIT 38.4 % (36.0-47.0); HEMOGLOBIN 12.3 g/dl (12.0-15.5); LYMPH # 1.8 10^3/uL (1.5-5.0); LYMPH % 27.8 % (24.0-44.0); MEAN CORPUSCULAR HEMOGLOBIN 28.9 pg (27.0-33.0); MEAN CORPUSCULAR VOLUME 90.4 fl (80.0-96.0); MONO # 0.9 10^3/uL (0.0-0.8); MONO % 14.1 % (2.0-8.0); NEUTROPHILS # 3.1 10^3/uL (1.5-8.5); NEUTROPHILS % 49.5 % (36.0-66.0); PLATELET COUNT, AUTOMATED 336 10^3/uL (150-450); RED BLOOD COUNT 4.25 10^6/uL (4.00-5.40); WHITE BLOOD COUNT 6.3 10^3/uL (4.0-10.0)
[2023-05-31 06:04] LABS: CALCIUM LEVEL 8.8 MG/DL (8.3-10.6); CREATININE FOR GFR 0.96 MG/DL (0.55-1.30); GLOMERULAR FILTRATION RATE 58.5 (>32); POTASSIUM SERUM 4.2 MMOL/L (3.5-5.1)
[2023-05-31] MEDS: VENLAFAXINE **XR** 75MG CAPSULE PO SCH (08:29)
[2023-05-31] MEDS: oxyBUTYnin 5 MG TAB PO SCH (08:29)
[2023-05-31] MEDS: PANTOPRAZOLE 40MG TAB (PROTONIX) PO SCH (08:30)
[2023-05-31] MEDS: CARVedilol 3.125 MG TAB PO SCH (08:30)
[2023-05-31 11:19] LABS: CHOLESTEROL RISK RATIO 2.55 (<5); HDL CHOLESTEROL 80.6 MG/DL (>40); LDL CHOLESTEROL 110.4 MG/DL (<100); NON-HDL-C 125.4 MG/DL
[2023-05-31] MEDS: ASPIRIN 81MG CHEW TABLET PO SCH (13:54)
[2023-05-31] MEDS: QUEtiapine FUMARATE 25 MG TAB PO SCH (17:02)
[2023-05-31] MEDS: SENOKOT S TAB PO SCH (20:07)
[2023-05-31] MEDS: ATORVASTATIN 20 MG TAB PO SCH (20:07)
[2023-06-01] VITALS (7 sets, daily range): BP systolic 122–190; BP diastolic 60–84; TEMP 97.6–98.7; O2SAT 94–97
[2023-06-01] MEDS ORDERED: HALOPERIDOL 5MG/ML 1ML VIAL IV STA (01:35)
[2023-06-01] MEDS: HALOPERIDOL 5MG/ML 1ML VIAL IM ONE (03:26)
[2023-06-01] MEDS ORDERED: LISI20TA33 PO (07:50)
[2023-06-01] MEDS ORDERED: FURO20TA2 PO (07:50)
[2023-06-01 07:54] LABS: BASO % 0.4 % (0.0-1.0); EOS # 0.5 10^3/uL (0.0-0.5); EOS % 7.3 % (0.0-3.0); HEMATOCRIT 41.9 % (36.0-47.0); HEMOGLOBIN 13.5 g/dl (12.0-15.5); LYMPH # 1.5 10^3/uL (1.5-5.0); LYMPH % 22.5 % (24.0-44.0); MEAN CORPUSCULAR HEMOGLOBIN 29.2 pg (27.0-33.0); MEAN CORPUSCULAR HGB CONC 32.2 g/dl (32.0-36.5); MEAN CORPUSCULAR VOLUME 90.5 fl (80.0-96.0); MONO # 0.9 10^3/uL (0.0-0.8); MONO % 13.2 % (2.0-8.0); NEUTROPHILS # 3.9 10^3/uL (1.5-8.5); NEUTROPHILS % 56.5 % (36.0-66.0); PLATELET COUNT, AUTOMATED 368 10^3/uL (150-450); RED BLOOD COUNT 4.63 10^6/uL (4.00-5.40); WHITE BLOOD COUNT 6.8 10^3/uL (4.0-10.0)
[2023-06-01 08:25] LABS: BLOOD UREA NITROGEN 28 MG/DL (9-23); CALCIUM LEVEL 9.2 MG/DL (8.3-10.6); CARBON DIOXIDE LEVEL 31 MMOL/L (20-31); CHLORIDE LEVEL 104 MMOL/L (98-107); CREATININE FOR GFR 0.82 MG/DL (0.55-1.30); GLOMERULAR FILTRATION RATE > 60.0 (>32); GLUCOSE, FASTING 98 MG/DL (74-106); POTASSIUM SERUM 4.3 MMOL/L (3.5-5.1); SODIUM LEVEL 141 MMOL/L (136-145)
[2023-06-01] MEDS: QUEtiapine FUMARATE 25 MG TAB PO SCH (20:01)
[2023-06-02 05:52] VITALS: BP 152/62; TEMP 97.7; O2SAT 97
[2023-06-02 08:21] VITALS: BP 142/78; TEMP 97.3; O2SAT 98
[2023-06-02 12:00] VITALS: BP 150/76
== END 2023-06-02 12:50 | DRG 69 ==
LOC: M ED 12:59 → EDBD 12:59 → M ED INP 15:21 → ENRESERV 16:21 → M PCU 17:30
PROVIDERS: ADMIT Internal Medicine Nephrology; ATTEND Internal Medicine Nephrology
DX: G45.9 Transient cerebral ischemic attack, unspecified (principal); I50.32 Chronic diastolic (congestive) heart failure; F05 Delirium due to known physiological condition; F03.911 Unspecified dementia, unspecified severity, with agitation; F32.1 Major depressive disorder, single episode, moderate; I11.0 Hypertensive heart disease with heart failure; K21.9 Gastro-esophageal reflux disease without esophagitis; D64.9 Anemia, unspecified; E78.5 Hyperlipidemia, unspecified; I16.0 Hypertensive urgency; M19.90 Unspecified osteoarthritis, unspecified site; M81.0 Age-related osteoporosis without current pathological fracture; G25.81 Restless legs syndrome; R29.6 Repeated falls; K57.90 Diverticulosis of intestine, part unspecified, without perforation or abscess without bleeding; E55.9 Vitamin D deficiency, unspecified; F43.10 Post-traumatic stress disorder, unspecified; I08.0 Rheumatic disorders of both mitral and aortic valves; Z86.16 Personal history of COVID-19; I83.899 Varicose veins of unspecified lower extremity with other complications; R32 Unspecified urinary incontinence; Z79.899 Other long term (current) drug therapy; Z96.653 Presence of artificial knee joint, bilateral; Z98.41 Cataract extraction status, right eye; Z98.42 Cataract extraction status, left eye

== ENCOUNTER 2023-06-10 16:25 | Emergency (ER) | payer MEDICARE, OTHER ==
[~2023-06-10] VITALS: Ht 170.2 cm; Wt 51.8 kg
[~2023-06-10 16:25] MED LIST changes: +PANT-23 PO
[2023-06-10 16:44] VITALS: TEMP 98.7
[2023-06-10 17:26] LABS: BASO % 0.6 % (0.0-1.0); EOS # 0.6 10^3/uL (0.0-0.5); EOS % 8.3 % (0.0-3.0); HEMATOCRIT 30.6 % (36.0-47.0); HEMOGLOBIN 11.1 g/dl (12.0-15.5); LYMPH # 1.2 10^3/uL (1.5-5.0); LYMPH % 18.7 % (24.0-44.0); MEAN CORPUSCULAR HEMOGLOBIN 34.6 pg (27.0-33.0); MEAN CORPUSCULAR HGB CONC 36.3 g/dl (32.0-36.5); MEAN CORPUSCULAR VOLUME 95.3 fl (80.0-96.0); MONO # 0.9 10^3/uL (0.0-0.8); MONO % 13.6 % (2.0-8.0); NEUTROPHILS # 3.9 10^3/uL (1.5-8.5); NEUTROPHILS % 58.3 % (36.0-66.0); PLATELET COUNT, AUTOMATED 394 10^3/uL (150-450); RED BLOOD COUNT 3.21 10^6/uL (4.00-5.40); WHITE BLOOD COUNT 6.6 10^3/uL (4.0-10.0)
[2023-06-10 17:29] LABS: CK-MB VALUE MASS < 1.0 NG/ML (<3.6); LIPASE 35 U/L (12-53)
[2023-06-10 17:31] LABS: ALBUMIN 2.7 G/DL (3.2-5.2); ALKALINE PHOSPHATASE 77 U/L (46-116); ALT/SGPT 12 U/L (7.0-40); AST/SGOT 10 U/L (<34); BILIRUBIN,DIRECT < 0.1 MG/DL (<0.4); BILIRUBIN,TOTAL 0.2 MG/DL (0.3-1.2); BLOOD UREA NITROGEN 23 MG/DL (9-23); CALCIUM LEVEL 8.3 MG/DL (8.3-10.6); CARBON DIOXIDE LEVEL 28 MMOL/L (20-31); CHLORIDE LEVEL 105 MMOL/L (98-107); CPK CREATINE PHOSPHOKINASE 43 U/L (34-145); GLOMERULAR FILTRATION RATE > 60.0 (>32); GLUCOSE, FASTING 160 MG/DL (74-106); MB/CK RELATIVE INDEX 2.32 (< OR =4); POTASSIUM SERUM 4.3 MMOL/L (3.5-5.1); SODIUM LEVEL 138 MMOL/L (136-145); TOTAL PROTEIN 6.2 G/DL (5.7-8.2)
[2023-06-10 17:33] LABS: THYROID STIMULATING HORMONE 0.346 uIU/ML (0.55-4.78)
[2023-06-10 17:38] LABS: INR 1.09; PARTIAL THROMBOPLASTIN TIME 29.6 SECONDS (24.8-34.2); PROTHROMBIN TIME 13.8 SECONDS (12.5-14.5)
[2023-06-10 18:15] VITALS: BP 177/84
[2023-06-10 18:25] VITALS: O2SAT 93
[2023-06-10 18:33] LABS: CK-MB VALUE MASS 1.1 NG/ML (<3.6)
[2023-06-10 18:46] LABS: MB/CK RELATIVE INDEX 2.07 (< OR =4)
== END 2023-06-10 18:39 | disposition home or self-care (01) ==
LOC: M ED 16:25 → EDBD 16:25 → M ED 18:39
DX: R07.9 Chest pain, unspecified (principal); I25.2 Old myocardial infarction; K21.9 Gastro-esophageal reflux disease without esophagitis; F32.9 Major depressive disorder, single episode, unspecified; Z79.811 Long term (current) use of aromatase inhibitors; Z79.52 Long term (current) use of systemic steroids; Z79.899 Other long term (current) drug therapy; Z79.83 Long term (current) use of bisphosphonates; Z53.9 Procedure and treatment not carried out, unspecified reason

== ENCOUNTER 2023-06-28 17:23 | Emergency (ER) | payer MEDICARE, OTHER ==
[2023-06-28] MEDS ORDERED: VITA200016 PO (17:41)
[2023-06-28] MEDS ORDERED: ASPI81CH33 PO (17:41)
[2023-06-28 18:32] LABS: BASO # 0.1 10^3/uL (0.0-0.2); BASO % 1.1 % (0.0-1.0); EOS # 0.8 10^3/uL (0.0-0.5); EOS % 12.8 % (0.0-3.0); HEMATOCRIT 35.3 % (36.0-47.0); HEMOGLOBIN 11.1 g/dl (12.0-15.5); LYMPH # 1.6 10^3/uL (1.5-5.0); LYMPH % 26.6 % (24.0-44.0); MEAN CORPUSCULAR HEMOGLOBIN 28.2 pg (27.0-33.0); MEAN CORPUSCULAR HGB CONC 31.4 g/dl (32.0-36.5); MEAN CORPUSCULAR VOLUME 89.8 fl (80.0-96.0); MONO # 0.8 10^3/uL (0.0-0.8); MONO % 12.8 % (2.0-8.0); NEUTROPHILS # 2.9 10^3/uL (1.5-8.5); NEUTROPHILS % 46.4 % (36.0-66.0); PLATELET COUNT, AUTOMATED 435 10^3/uL (150-450); RED BLOOD COUNT 3.93 10^6/uL (4.00-5.40); WHITE BLOOD COUNT 6.2 10^3/uL (4.0-10.0)
[2023-06-28 18:59] LABS: ALBUMIN 2.8 G/DL (3.2-5.2); ALKALINE PHOSPHATASE 90 U/L (46-116); ALT/SGPT 15 U/L (7.0-40); AST/SGOT 20 U/L (<34); BILIRUBIN,DIRECT < 0.1 MG/DL (<0.4); BILIRUBIN,TOTAL < 0.2 MG/DL (0.3-1.2); BLOOD UREA NITROGEN 30 MG/DL (9-23); CALCIUM LEVEL 8.4 MG/DL (8.3-10.6); CARBON DIOXIDE LEVEL 30 MMOL/L (20-31); CHLORIDE LEVEL 104 MMOL/L (98-107); CREATININE FOR GFR 0.98 MG/DL (0.55-1.30); GLUCOSE, FASTING 105 MG/DL (74-106); POTASSIUM SERUM 5.3 MMOL/L (3.5-5.1); SODIUM LEVEL 139 MMOL/L (136-145); TOTAL PROTEIN 6.4 G/DL (5.7-8.2)
[2023-06-28 19:02] LABS: THYROID STIMULATING HORMONE 0.129 uIU/ML (0.55-4.78)
[2023-06-28 19:30] VITALS: BP 210/90
[2023-06-28] MEDS: hydrALAZINE 20MG/ML 1ML VIAL IV STA (19:30)
[2023-06-28] MEDS: amLODIPine 5 MG TAB PO ONE (19:30)
[2023-06-28] MEDS: CARVedilol 3.125 MG TAB PO ONE (20:19)
[2023-06-28 20:24] LABS: RSV AMPLIFICATION NEGATIVE (NEGATIVE)
[2023-06-28 22:12] VITALS: BP 164/84; TEMP 98.1; O2SAT 92
[2023-06-29] MEDS ORDERED: AMOX875T2 PO (12:17)
[2023-06-29] MEDS ORDERED: LISI20TA33 PO (14:01)
== END 2023-06-28 22:13 | disposition home or self-care (01) ==
LOC: M ED 17:23
DX: I16.0 Hypertensive urgency (principal); I10 Essential (primary) hypertension; K21.9 Gastro-esophageal reflux disease without esophagitis; E55.9 Vitamin D deficiency, unspecified; K44.9 Diaphragmatic hernia without obstruction or gangrene; Z79.2 Long term (current) use of antibiotics; Z79.82 Long term (current) use of aspirin; Z79.811 Long term (current) use of aromatase inhibitors; Z79.899 Other long term (current) drug therapy
CPT/HCPCS: 70450; 71045; 80048; 80076; 84443; 85025; 87631; 93005; 93041; 94760; 96374; 99284; J0360

== ENCOUNTER 2023-06-29 10:43 | Emergency (ER) | payer MEDICARE, OTHER ==
[~2023-06-29] VITALS: Ht 162.6 cm; Wt 51.8 kg
[~2023-06-29 10:43] MED LIST changes: +ASPI81CH33 PO; +VITA200016 PO
[2023-06-29 10:57] VITALS: TEMP 98.8; O2SAT 92
[2023-06-29 11:39] LABS: HEMOGLOBIN 12.5 g/dl (12.0-15.5); MEAN CORPUSCULAR HEMOGLOBIN 28.3 pg (27.0-33.0); MEAN CORPUSCULAR HGB CONC 32.1 g/dl (32.0-36.5); MEAN CORPUSCULAR VOLUME 88.4 fl (80.0-96.0); PLATELET COUNT, AUTOMATED 468 10^3/uL (150-450); RED BLOOD COUNT 4.41 10^6/uL (4.00-5.40); WHITE BLOOD COUNT 5.5 10^3/uL (4.0-10.0)
[2023-06-29] MEDS ORDERED: MED REC IN PROGRESS XX SCH (11:50)
[2023-06-29] MEDS: ACETAMINOPHEN TAB 650MG DOSE (2X325MG) PO ONE (12:05)
[2023-06-29] MEDS ORDERED: AMOX875T2 PO (12:17)
[2023-06-29 13:11] VITALS: BP 208/98
[2023-06-29] MEDS: CARVedilol 3.125 MG TAB PO ONE (13:11)
[2023-06-29] MEDS ORDERED: LISI20TA33 PO (14:01)
[2023-06-29] MEDS ORDERED: HOME MED LIST COMPLETE! XX SCH (14:05)
[2023-06-29 14:13] VITALS: BP 182/92
== END 2023-06-29 15:13 | disposition home or self-care (01) ==
LOC: M ED 10:43 → EDBD 10:43 → M ED 15:13
DX: R04.0 Epistaxis (principal); I10 Essential (primary) hypertension; E78.5 Hyperlipidemia, unspecified; Z86.79 Personal history of other diseases of the circulatory system; Z79.82 Long term (current) use of aspirin; Z79.2 Long term (current) use of antibiotics; Z79.811 Long term (current) use of aromatase inhibitors; Z79.899 Other long term (current) drug therapy

== ENCOUNTER → 2023-07-14 | Outpatient (REF) | payer MEDICARE, OTHER ==
[~2023-07-14] MED LIST changes: +AMOX875T2 PO
[2023-07-14 08:12] LABS: BASO % 0.7 % (0.0-1.0); EOS # 0.5 10^3/uL (0.0-0.5); EOS % 8.8 % (0.0-3.0); HEMOGLOBIN 10.7 g/dl (12.0-15.5); LYMPH # 1.8 10^3/uL (1.5-5.0); LYMPH % 31.2 % (24.0-44.0); MEAN CORPUSCULAR HEMOGLOBIN 30.5 pg (27.0-33.0); MEAN CORPUSCULAR HGB CONC 33.4 g/dl (32.0-36.5); MEAN CORPUSCULAR VOLUME 91.2 fl (80.0-96.0); MONO # 0.7 10^3/uL (0.0-0.8); MONO % 11.8 % (2.0-8.0); NEUTROPHILS # 2.7 10^3/uL (1.5-8.5); NEUTROPHILS % 47.5 % (36.0-66.0); PLATELET COUNT, AUTOMATED 350 10^3/uL (150-450); RED BLOOD COUNT 3.51 10^6/uL (4.00-5.40); WHITE BLOOD COUNT 5.8 10^3/uL (4.0-10.0)
[2023-07-14 08:39] LABS: ALBUMIN 2.8 G/DL (3.2-5.2); BILIRUBIN,TOTAL 0.3 MG/DL (0.3-1.2); CALCIUM LEVEL 8.6 MG/DL (8.3-10.6); GLOMERULAR FILTRATION RATE 55.7 (>32); MAGNESIUM LEVEL 1.8 MG/DL (1.8-2.4); POTASSIUM SERUM 4.3 MMOL/L (3.5-5.1); TOTAL PROTEIN 5.8 G/DL (5.7-8.2)
[2023-07-14 08:40] LABS: FERRITIN 16.3 NG/ML (7.3-270.7); TOTAL 25(OH) VITAMIN D 27.2 NG/ML (20.0-100.0)
[2023-07-14 08:41] LABS: HEMOGLOBIN A1c 6.2 % (4.0-6.0); THYROID STIMULATING HORMONE 0.156 uIU/ML (0.55-4.78)
== END ==
PROVIDERS: ATTEND Internal Medicine Hematology
DX: I10 Essential (primary) hypertension (principal); D64.9 Anemia, unspecified; Z79.899 Other long term (current) drug therapy

== ENCOUNTER 2023-07-27 09:33 | Emergency (ER) | payer MEDICARE, OTHER ==
[~2023-07-27] VITALS: Ht 162.6 cm; Wt 53.2 kg
[2023-07-27] MEDS: CARVedilol 3.125 MG TAB PO ONE (10:03)
[2023-07-27 10:24] LABS: HEMATOCRIT 35.6 % (36.0-47.0); HEMOGLOBIN 11.1 g/dl (12.0-15.5); MEAN CORPUSCULAR HEMOGLOBIN 26.4 pg (27.0-33.0); MEAN CORPUSCULAR HGB CONC 31.2 g/dl (32.0-36.5); MEAN CORPUSCULAR VOLUME 84.8 fl (80.0-96.0); PLATELET COUNT, AUTOMATED 359 10^3/uL (150-450); WHITE BLOOD COUNT 5.4 10^3/uL (4.0-10.0)
[2023-07-27 10:37] LABS: INR 0.95; PROTHROMBIN TIME 12.4 SECONDS (12.5-14.5)
[2023-07-27 10:47] LABS: CALCIUM LEVEL 8.8 MG/DL (8.3-10.6); CREATININE FOR GFR 0.94 MG/DL (0.55-1.30); GLOMERULAR FILTRATION RATE 59.8 (>32); POTASSIUM SERUM 4.3 MMOL/L (3.5-5.1)
[2023-07-27] MEDS: ALPRAZolam 0.25 MG TAB PO ONE (12:09)
[2023-07-27] MEDS: hydrALAZINE 20MG/ML 1ML VIAL IV STA (13:12)
[2023-07-27] MEDS ORDERED: OXYB10TA23 PO (14:13)
[2023-07-27] MEDS ORDERED: ASPI81TA26 PO (14:13)
[2023-07-27] MEDS ORDERED: HOME MED LIST COMPLETE! XX SCH (14:20)
[2023-07-27 14:44] VITALS: BP 222/101
[2023-07-27] MEDS: LABETALOL 100MG/20ML VIAL IV STA (14:44)
[2023-07-27] MEDS: CHLORTHALIDONE 12.5MG PER 1/2 TABLET PO ONE (15:25)
[2023-07-27] MEDS ORDERED: CHLO125TA PO (15:31)
[2023-07-27 17:30] VITALS: BP 192/90
[2023-07-27 17:45] VITALS: TEMP 98.3; O2SAT 94
== END 2023-07-27 17:59 | disposition home or self-care (01) ==
LOC: M ED 09:33 → EDBD 09:33 → M ED 17:59
DX: I10 Essential (primary) hypertension (principal); R04.0 Epistaxis; E78.5 Hyperlipidemia, unspecified; F32.A Depression, unspecified; F41.9 Anxiety disorder, unspecified; F43.10 Post-traumatic stress disorder, unspecified; R33.9 Retention of urine, unspecified; Z86.79 Personal history of other diseases of the circulatory system; Z79.01 Long term (current) use of anticoagulants; Z79.82 Long term (current) use of aspirin; Z79.811 Long term (current) use of aromatase inhibitors; Z79.899 Other long term (current) drug therapy
CPT/HCPCS: 36415; 70450; 80048; 85027; 85610; 87426; 87880; 93005; 96374; 96375; 99285; J0360; J1920

== ENCOUNTER → 2023-08-09 | Outpatient (CLI) | payer MEDICARE, OTHER ==
[~2023-08-09] VITALS: Ht 162.6 cm; Wt 53.2 kg
[~2023-08-09] MED LIST changes: +ALBUTEROL SULFATE 2.5MG/0.5ML INH NEB SOLN INH PRN; +CHLO125TA PO; +EPINEPHrine INJ 1 MG/ML 1ML AMP IM PRN; +NS 1,000 ML IV SCH; +OXYB10TA23 PO; +diphenhydrAMINE 50MG/ML VIAL IV PRN; +methylPREDNISolone 125MG 2ML VIAL IV PRN
[2023-08-09 07:57] VITALS: BP 196/85; O2SAT 94
[2023-08-09] MEDS: IRON SUCROSE 200 MG in NS 100 ML OVER 1 HR IV ONE (08:09)
[2023-08-09 09:25] VITALS: BP 180/82; O2SAT 92
== END ==
LOC: M INFU 07:11
PROVIDERS: ATTEND Internal Medicine Hematology
DX: D50.8 Other iron deficiency anemias (principal)
CPT/HCPCS: 96365; J1756

== ENCOUNTER → 2023-08-14 | Outpatient (CLI) | payer MEDICARE, OTHER ==
[~2023-08-14] MED LIST changes: -ALBUTEROL SULFATE 2.5MG/0.5ML INH NEB SOLN INH PRN; -EPINEPHrine INJ 1 MG/ML 1ML AMP IM PRN; -NS 1,000 ML IV SCH; -diphenhydrAMINE 50MG/ML VIAL IV PRN; -methylPREDNISolone 125MG 2ML VIAL IV PRN
[2023-08-14 14:01] LABS: THYROID STIMULATING HORMONE 0.204 uIU/ML (0.55-4.78)
[2023-08-14 14:03] LABS: FREE T4 1.12 NG/DL (0.89-1.76)
[2023-08-14 14:06] LABS: FREE T3 2.5 PG/ML (2.3-4.2); THYROGLOBULIN ANTIBODY < 15.0 U/ML (<60.0)
== END ==
LOC: M PLALAB 09:58
PROVIDERS: ATTEND Internal Medicine Hematology
DX: R79.89 Other specified abnormal findings of blood chemistry (principal); I10 Essential (primary) hypertension

== ENCOUNTER 2023-08-16 08:40 | Outpatient (CLI) | payer MEDICARE, OTHER ==
[~2023-08-16] VITALS: Ht 157.5 cm; Wt 54.5 kg
[2023-08-16 08:40] VITALS: BP 171/74
[~2023-08-16 08:40] MED LIST changes: +ALBUTEROL SULFATE 2.5MG/0.5ML INH NEB SOLN INH PRN; +EPINEPHrine INJ 1 MG/ML 1ML AMP IM PRN; +NS 1,000 ML IV SCH; +diphenhydrAMINE 50MG/ML VIAL IV PRN; +methylPREDNISolone 125MG 2ML VIAL IV PRN
[2023-08-16] MEDS: IRON SUCROSE 200 MG in NS 100 ML OVER 1 HR IV ONE (08:50)
[2023-08-16 10:00] VITALS: BP 146/67; O2SAT 96
== END 2023-08-16 10:00 | disposition home or self-care (01) ==
LOC: M INFU 08:40
PROVIDERS: ATTEND Internal Medicine Hematology
DX: D50.8 Other iron deficiency anemias (principal)
CPT/HCPCS: 96365; J1756

== ENCOUNTER 2023-08-23 09:40 | Outpatient (CLI) | payer MEDICARE, OTHER ==
[~2023-08-23] VITALS: Ht 157.5 cm; Wt 54.5 kg
[2023-08-23 09:40] VITALS: BP 181/82; O2SAT 96
[~2023-08-23 09:40] MED LIST changes: -NS 1,000 ML IV SCH
[2023-08-23] MEDS: IRON SUCROSE 200 MG in NS 100 ML OVER 1 HR IV ONE (09:50)
[2023-08-23] MEDS ORDERED: NS 1,000 ML IV SCH (10:00)
[2023-08-23 10:30] VITALS: BP 154/70; O2SAT 98
== END 2023-08-23 10:30 ==
LOC: M INFU 09:40
PROVIDERS: ATTEND Internal Medicine Hematology
DX: D50.8 Other iron deficiency anemias (principal)
CPT/HCPCS: 96365; J1756

== ENCOUNTER 2023-09-15 12:21 | Emergency (ER) | payer MEDICARE, OTHER ==
[~2023-09-15 12:21] MED LIST changes: -ALBUTEROL SULFATE 2.5MG/0.5ML INH NEB SOLN INH PRN; -EPINEPHrine INJ 1 MG/ML 1ML AMP IM PRN; -diphenhydrAMINE 50MG/ML VIAL IV PRN; -methylPREDNISolone 125MG 2ML VIAL IV PRN
[2023-09-15 12:35] VITALS: TEMP 97.7
[2023-09-15 13:45] VITALS: BP 167/71; O2SAT 94
== END 2023-09-15 14:29 | disposition home or self-care (01) ==
LOC: EDBD 12:21 → M ED 12:21
DX: R06.02 Shortness of breath (principal); K21.9 Gastro-esophageal reflux disease without esophagitis; F41.9 Anxiety disorder, unspecified; Z86.73 Personal history of transient ischemic attack (TIA), and cerebral infarction without residual deficits; Z90.89 Acquired absence of other organs; Z79.82 Long term (current) use of aspirin; Z79.811 Long term (current) use of aromatase inhibitors; Z79.899 Other long term (current) drug therapy

== ENCOUNTER → 2023-10-12 | Outpatient (REF) | payer MEDICARE, OTHER ==
[2023-10-13 00:56] LABS: AMORPHOUS SEDIMENT SMALL (NEGATIVE); APPEARANCE, URINE CLOUDY (CLEAR); BACTERIA, URINE AUTO 2+ (NEGATIVE); BILIRUBIN, URINE AUTO NEGATIVE (NEGATIVE); BLOOD, URINE BLOOD NEGATIVE (NEGATIVE); COLOR, URINE YELLOW (YELLOW); GLUCOSE, URINE (UA) AUTO NEGATIVE (NEGATIVE); KETONE, URINE AUTO NEGATIVE (NEGATIVE); LEUKOCYTE ESTERASE, URINE AUTO 3+ (NEGATIVE); MUCUS, URINE SMALL (NEGATIVE); NITRITE, URINE AUTO NEGATIVE (NEGATIVE); PROTEIN, URINE AUTO NEGATIVE (NEGATIVE); RBC, URINE AUTO 2 /HPF (0-3); SPECIFIC GRAVITY URINE AUTO 1.009 (1.002-1.035); SQUAMOUS EPITHELIAL CELL UR AU 4 /HPF (0-6); UROBILINOGEN, URINE AUTO 0.2 mg/dL (0.0-2.0); WBC, URINE AUTO 168 /HPF (0-3)
== END ==
LOC: M LAB 15:05
PROVIDERS: ATTEND Internal Medicine Hematology
DX: R30.0 Dysuria (principal)

== ENCOUNTER → 2023-11-15 | Outpatient (REF) | payer MEDICARE, OTHER ==
[2023-11-15 11:27] LABS: BASO # 0.1 10^3/uL (0.0-0.2); BASO % 0.8 % (0.0-1.0); EOS # 0.3 10^3/uL (0.0-0.5); EOS % 5.4 % (0.0-3.0); HEMOGLOBIN 13.1 g/dl (12.0-15.5); LYMPH # 1.7 10^3/uL (1.5-5.0); LYMPH % 27.5 % (24.0-44.0); MEAN CORPUSCULAR HEMOGLOBIN 28.2 pg (27.0-33.0); MEAN CORPUSCULAR VOLUME 88.2 fl (80.0-96.0); MONO # 0.6 10^3/uL (0.0-0.8); MONO % 10.2 % (2.0-8.0); NEUTROPHILS # 3.5 10^3/uL (1.5-8.5); NEUTROPHILS % 55.8 % (36.0-66.0); PLATELET COUNT, AUTOMATED 337 10^3/uL (150-450); RED BLOOD COUNT 4.65 10^6/uL (4.00-5.40); WHITE BLOOD COUNT 6.3 10^3/uL (4.0-10.0)
[2023-11-15 11:59] LABS: C REACTIVE PROTEIN QUANTITATIV < 0.40 MG/DL (<1.0)
[2023-11-15 12:01] LABS: ALBUMIN 3.5 G/DL (3.2-5.2); ALKALINE PHOSPHATASE 90 U/L (46-116); ALT/SGPT 13 U/L (7.0-40); AST/SGOT 12 U/L (<34); BILIRUBIN,TOTAL 0.3 MG/DL (0.3-1.2); BLOOD UREA NITROGEN 41 MG/DL (9-23); CALCIUM LEVEL 9.4 MG/DL (8.3-10.6); CARBON DIOXIDE LEVEL 29 MMOL/L (20-31); CHLORIDE LEVEL 106 MMOL/L (98-107); CREATININE FOR GFR 1.18 MG/DL (0.55-1.30); GLUCOSE, FASTING 79 MG/DL (74-106); POTASSIUM SERUM 4.5 MMOL/L (3.5-5.1); SODIUM LEVEL 142 MMOL/L (136-145); THYROID STIMULATING HORMONE 0.255 uIU/ML (0.55-4.78); TOTAL 25(OH) VITAMIN D 20.6 NG/ML (20.0-100.0); TOTAL PROTEIN 6.8 G/DL (5.7-8.2); VITAMIN B12 LEVEL 447 PG/ML (211-911)
[2023-11-15 12:02] LABS: FREE T4 1.19 NG/DL (0.89-1.76)
== END ==
PROVIDERS: ATTEND Internal Medicine Hematology
DX: R79.89 Other specified abnormal findings of blood chemistry (principal); D64.9 Anemia, unspecified; Z79.899 Other long term (current) drug therapy

== ENCOUNTER → 2023-11-16 | Outpatient (REF) | payer MEDICARE, OTHER | LOC: M SFHCPLAZ 17:04 | PROVIDERS: ATTEND Internal Medicine Hematology | DX: N39.0 Urinary tract infection, site not specified (principal) ==

== ENCOUNTER 2024-01-22 12:50 | Observation (INO) | payer MEDICARE, OTHER ==
[~2024-01-22] VITALS: Ht 175.3 cm; Wt 49.9 kg
[2024-01-22 15:42] LABS: BASO % 0.5 % (0.0-1.0); EOS # 0.3 10^3/uL (0.0-0.5); EOS % 4.5 % (0.0-3.0); HEMATOCRIT 42.2 % (36.0-47.0); HEMOGLOBIN 14.2 g/dl (12.0-15.5); LYMPH # 1.7 10^3/uL (1.5-5.0); LYMPH % 22.8 % (24.0-44.0); MEAN CORPUSCULAR HEMOGLOBIN 29.3 pg (27.0-33.0); MEAN CORPUSCULAR HGB CONC 33.6 g/dl (32.0-36.5); MONO # 0.6 10^3/uL (0.0-0.8); MONO % 8.6 % (2.0-8.0); NEUTROPHILS # 4.6 10^3/uL (1.5-8.5); NEUTROPHILS % 63.3 % (36.0-66.0); PLATELET COUNT, AUTOMATED 343 10^3/uL (150-450); RED BLOOD COUNT 4.85 10^6/uL (4.00-5.40); WHITE BLOOD COUNT 7.3 10^3/uL (4.0-10.0)
[2024-01-22 15:57] LABS: ALBUMIN 3.3 G/DL (3.2-5.2); ALKALINE PHOSPHATASE 85 U/L (46-116); ALT/SGPT 16 U/L (7.0-40); AST/SGOT 24 U/L (<34); BILIRUBIN,DIRECT < 0.1 MG/DL (<0.4); BILIRUBIN,TOTAL 0.2 MG/DL (0.3-1.2); BLOOD UREA NITROGEN 100 MG/DL (9-23); CALCIUM LEVEL 9.7 MG/DL (8.3-10.6); CARBON DIOXIDE LEVEL 30 MMOL/L (20-31); CHLORIDE LEVEL 93 MMOL/L (98-107); GLOMERULAR FILTRATION RATE 28.3 (>32); GLUCOSE, FASTING 92 MG/DL (74-106); POTASSIUM SERUM 4.8 MMOL/L (3.5-5.1); SODIUM LEVEL 133 MMOL/L (136-145); TOTAL PROTEIN 7.3 G/DL (5.7-8.2)
[2024-01-22] MEDS: NS 1,000 ML IV ONE (16:35)
[2024-01-22 17:37] LABS: MAGNESIUM LEVEL 2.2 MG/DL (1.8-2.4)
[2024-01-22] MEDS ORDERED: NS 1,000 ML IV SCH (17:40)
[2024-01-22 17:41] LABS: THYROID STIMULATING HORMONE 0.244 uIU/ML (0.55-4.78)
[2024-01-22 18:01] LABS: FREE T4 1.6 NG/DL (0.89-1.76)
[2024-01-22 19:29] VITALS: BP 146/74; TEMP 97.4; O2SAT 97
[2024-01-22] MEDS ORDERED: MIRTAZAPINE 7.5MG PER 1/2 TABLET PO SCH (21:00)
[2024-01-22] MEDS ORDERED: CARVedilol 6.25 MG TAB PO SCH (21:00)
[2024-01-23] MEDS ORDERED: PANTOPRAZOLE 40MG TAB (PROTONIX) PO SCH (09:00)
[2024-01-23] MEDS ORDERED: ENOXAPARIN 30MG/0.3ML SYRINGE (J1650 PER 10MG) SC SCH (09:00)
[2024-01-23] MEDS ORDERED: CARVedilol 6.25 MG TAB PO SCH (09:00)
[2024-01-23] MEDS ORDERED: ASPIRIN 81MG ENTERIC TABLET PO SCH (09:00)
[2024-01-23] MEDS ORDERED: VENLAFAXINE **XR** 75MG CAPSULE PO SCH ×2 (09:00)
== END 2024-01-22 19:30 | disposition left against medical advice (07) ==
LOC: EDBD 12:50 → M ED 12:50 → M ED INP 17:39
PROVIDERS: ADMIT Family Medicine; ATTEND Family Medicine
DX: N17.8 Other acute kidney failure (principal); Z53.29 Procedure and treatment not carried out because of patient's decision for other reasons; F32.A Depression, unspecified; I10 Essential (primary) hypertension; Z79.899 Other long term (current) drug therapy; Z79.82 Long term (current) use of aspirin

== ENCOUNTER 2024-01-24 10:52 | Observation (INO) | payer MEDICARE, OTHER ==
[2024-01-24 12:02] LABS: BASO % 0.3 % (0.0-1.0); EOS # 0.2 10^3/uL (0.0-0.5); EOS % 2.5 % (0.0-3.0); HEMATOCRIT 38.2 % (36.0-47.0); HEMOGLOBIN 12.7 g/dl (12.0-15.5); LYMPH # 1.3 10^3/uL (1.5-5.0); LYMPH % 17.6 % (24.0-44.0); MEAN CORPUSCULAR HEMOGLOBIN 29.1 pg (27.0-33.0); MEAN CORPUSCULAR HGB CONC 33.2 g/dl (32.0-36.5); MEAN CORPUSCULAR VOLUME 87.4 fl (80.0-96.0); MONO # 0.7 10^3/uL (0.0-0.8); MONO % 9.6 % (2.0-8.0); NEUTROPHILS # 5.1 10^3/uL (1.5-8.5); NEUTROPHILS % 69.7 % (36.0-66.0); PLATELET COUNT, AUTOMATED 316 10^3/uL (150-450); RED BLOOD COUNT 4.37 10^6/uL (4.00-5.40); WHITE BLOOD COUNT 7.3 10^3/uL (4.0-10.0)
[2024-01-24 12:44] LABS: ALKALINE PHOSPHATASE 80 U/L (46-116); ALT/SGPT 14 U/L (7.0-40); AST/SGOT 11 U/L (<34); BILIRUBIN,DIRECT < 0.1 MG/DL (<0.4); BILIRUBIN,TOTAL 0.2 MG/DL (0.3-1.2); BLOOD UREA NITROGEN 99 MG/DL (9-23); CALCIUM LEVEL 8.8 MG/DL (8.3-10.6); CARBON DIOXIDE LEVEL 28 MMOL/L (20-31); CHLORIDE LEVEL 98 MMOL/L (98-107); CREATININE FOR GFR 1.86 MG/DL (0.55-1.30); GLOMERULAR FILTRATION RATE 27.2 (>32); GLUCOSE, FASTING 113 MG/DL (74-106); POTASSIUM SERUM 3.5 MMOL/L (3.5-5.1); SODIUM LEVEL 134 MMOL/L (136-145); TOTAL PROTEIN 6.5 G/DL (5.7-8.2)
[2024-01-24] MEDS ORDERED: AMLO25TA PO (13:42)
[2024-01-24] MEDS ORDERED: CHLO25TA PO (13:42)
[2024-01-24] MEDS ORDERED: VENL-115 PO (13:48)
[2024-01-24] MEDS ORDERED: ESTR2TAB3 PO (13:48)
[2024-01-24] MEDS ORDERED: VITA1CHW7 PO (13:53)
[2024-01-24] MEDS ORDERED: PEPT262S PO (13:58)
[2024-01-24] MEDS ORDERED: ACET-839 PO (13:58)
[2024-01-24] MEDS ORDERED: MED REC COMMENT (14:04)
[2024-01-24] MEDS ORDERED: HOME MED LIST COMPLETE! XX SCH (14:05)
[2024-01-24] MEDS: D5W/0.9% SODIUM CHLORIDE 1,000 ML IV SCH (14:07)
[2024-01-24] MEDS: amLODIPine 5 MG TAB PO SCH (14:07)
[2024-01-24] MEDS: NS 500 ML IV ONE (14:09)
[2024-01-24 17:50] VITALS: BP 143/68; TEMP 97.5; O2SAT 97
[2024-01-24] MEDS: CARVedilol 6.25 MG TAB PO SCH (20:13)
[2024-01-24] MEDS: PANTOPRAZOLE 40MG TAB (PROTONIX) PO SCH (20:13)
[2024-01-24] MEDS: MIRTAZAPINE 7.5MG PER 1/2 TABLET PO SCH (20:13)
[2024-01-24 21:07] VITALS: BP 170/70; TEMP 97.9; O2SAT 94
[2024-01-25 03:22] VITALS: BP 154/58; TEMP 98.1; O2SAT 95
[2024-01-25 05:48] LABS: BASO # 0.1 10^3/uL (0.0-0.2); EOS # 0.5 10^3/uL (0.0-0.5); EOS % 5.6 % (0.0-3.0); HEMATOCRIT 39.2 % (36.0-47.0); HEMOGLOBIN 12.6 g/dl (12.0-15.5); LYMPH # 1.5 10^3/uL (1.5-5.0); LYMPH % 18.2 % (24.0-44.0); MEAN CORPUSCULAR HEMOGLOBIN 28.4 pg (27.0-33.0); MEAN CORPUSCULAR HGB CONC 32.1 g/dl (32.0-36.5); MEAN CORPUSCULAR VOLUME 88.3 fl (80.0-96.0); MONO # 0.8 10^3/uL (0.0-0.8); MONO % 10.3 % (2.0-8.0); NEUTROPHILS # 5.2 10^3/uL (1.5-8.5); NEUTROPHILS % 64.5 % (36.0-66.0); PLATELET COUNT, AUTOMATED 295 10^3/uL (150-450); RED BLOOD COUNT 4.44 10^6/uL (4.00-5.40)
[2024-01-25 06:17] LABS: CALCIUM LEVEL 8.5 MG/DL (8.3-10.6); CREATININE FOR GFR 1.33 MG/DL (0.55-1.30); GLOMERULAR FILTRATION RATE 40.1 (>32); POTASSIUM SERUM 3.2 MMOL/L (3.5-5.1)
[2024-01-25] MEDS: VENLAFAXINE **XR** 75MG CAPSULE PO SCH (09:04)
[2024-01-25] MEDS: POTASSIUM CHLORIDE 10MEQ SR TABLET PO ONE (12:46)
[2024-01-25 13:48] VITALS: BP 156/62; TEMP 97.7; O2SAT 93
[2024-01-25 20:00] VITALS: BP 152/74; TEMP 98.6; O2SAT 92
[2024-01-26 04:00] VITALS: BP 147/72; TEMP 98.6; O2SAT 95
[2024-01-26 05:54] LABS: BASO # 0.1 10^3/uL (0.0-0.2); BASO % 0.6 % (0.0-1.0); EOS # 0.1 10^3/uL (0.0-0.5); EOS % 0.9 % (0.0-3.0); HEMATOCRIT 39.1 % (36.0-47.0); HEMOGLOBIN 12.8 g/dl (12.0-15.5); LYMPH # 1.2 10^3/uL (1.5-5.0); LYMPH % 13.9 % (24.0-44.0); MEAN CORPUSCULAR HGB CONC 32.7 g/dl (32.0-36.5); MEAN CORPUSCULAR VOLUME 88.5 fl (80.0-96.0); MONO % 11.1 % (2.0-8.0); NEUTROPHILS # 6.4 10^3/uL (1.5-8.5); NEUTROPHILS % 73.2 % (36.0-66.0); PLATELET COUNT, AUTOMATED 278 10^3/uL (150-450); RED BLOOD COUNT 4.42 10^6/uL (4.00-5.40); WHITE BLOOD COUNT 8.8 10^3/uL (4.0-10.0)
[2024-01-26 06:20] LABS: CALCIUM LEVEL 8.7 MG/DL (8.3-10.6); CREATININE FOR GFR 0.95 MG/DL (0.55-1.30); GLOMERULAR FILTRATION RATE 59.1 (>32); POTASSIUM SERUM 3.7 MMOL/L (3.5-5.1)
[2024-01-26 12:00] VITALS: BP 147/70; TEMP 98.4; O2SAT 94
[2024-01-26] MEDS ORDERED: BISACODYL 10MG SUPP PR PRN (15:20)
[2024-01-26] MEDS ORDERED: MORPHINE 10MG/0.5ML ORAL CONCENTRATE SOLUTION U/D SL PRN (15:20)
[2024-01-26] MEDS ORDERED: ATROPINE SULFATE 1% OPHTH SOLN 2ML BTL SL PRN (15:20)
[2024-01-26] MEDS ORDERED: LORazepam 1 MG TAB PO PRN (15:20)
[2024-01-26] MEDS ORDERED: HYOSCYAMINE SULFATE 0.125 MG SUBL TABLET PO PRN (15:20)
[2024-01-26] MEDS: ONDANSETRON 4MG ORAL DISINTEGRATING TAB PO PRN (18:35)
[2024-01-27 04:36] VITALS: BP 127/87; TEMP 98.8; O2SAT 100
[2024-01-27] MEDS ORDERED: LORazepam 0.5 MG TAB PO PRN (16:15)
[2024-01-27] MEDS: ACETAMINOPHEN 325 MG TAB PO PRN (18:39)
[2024-01-28 03:36] VITALS: BP 116/61; TEMP 98.8; O2SAT 91
[2024-01-29 21:47] VITALS: BP 135/73
[2024-01-30] MEDS ORDERED: MORP1SOL5 PO (11:03)
[2024-01-30] MEDS ORDERED: MIRT-10 PO (11:03)
[2024-01-30] MEDS ORDERED: HYOS125TA PO (11:03)
[2024-01-30] MEDS ORDERED: ATIV1TAB10 PO (11:03)
[2024-01-30] MEDS ORDERED: ONDA-282 PO (11:05)
[2024-01-30] MEDS ORDERED: ATRO2DRO4 SL (11:05)
== END 2024-01-30 11:40 ==
LOC: M ED 10:52 → EDBD 10:52 → M ED INP 13:21 → INTOOBSV 13:21 → M MSPAV 17:52
PROVIDERS: ADMIT Internal Medicine Nephrology; ATTEND Internal Medicine Nephrology
DX: N17.8 Other acute kidney failure (principal); E86.0 Dehydration; Z53.29 Procedure and treatment not carried out because of patient's decision for other reasons; F32.A Depression, unspecified; I10 Essential (primary) hypertension; Z79.899 Other long term (current) drug therapy; Z79.82 Long term (current) use of aspirin; G92.8 Other toxic encephalopathy; E43 Unspecified severe protein-calorie malnutrition; R62.7 Adult failure to thrive; F03.B0 Unspecified dementia, moderate, without behavioral disturbance, psychotic disturbance, mood disturbance, and anxiety; Z51.5 Encounter for palliative care; R42 Dizziness and giddiness; R53.1 Weakness; R29.6 Repeated falls; E78.5 Hyperlipidemia, unspecified; K44.9 Diaphragmatic hernia without obstruction or gangrene; K57.92 Diverticulitis of intestine, part unspecified, without perforation or abscess without bleeding; M81.0 Age-related osteoporosis without current pathological fracture; M19.90 Unspecified osteoarthritis, unspecified site; E55.9 Vitamin D deficiency, unspecified; G25.81 Restless legs syndrome; F41.9 Anxiety disorder, unspecified; F43.10 Post-traumatic stress disorder, unspecified
CPT/HCPCS: 36415; 80048; 80076; 83735; 85025; 87426; 93005; 96374; 99285; G0378

== ENCOUNTER → 2024-02-05 | Outpatient (REF) ==
[~2024-02-05] MED LIST changes: +ACET-839 PO; +AMLO25TA PO; +ATIV1TAB10 PO; +ATRO2DRO4 SL; +CHLO25TA PO; +ESTR2TAB3 PO; +HYOS125TA PO; +MED REC COMMENT; +MIRT-10 PO; +MORP1SOL5 PO; +ONDA-282 PO; +PEPT262S PO; +VENL-115 PO; +VITA1CHW7 PO
[2024-02-05 10:24] LABS: INR 1.11; PARTIAL THROMBOPLASTIN TIME 31.4 SECONDS (24.8-34.2)
== END ==
PROVIDERS: ATTEND Internal Medicine
DX: K74.60 Unspecified cirrhosis of liver (principal); Z79.01 Long term (current) use of anticoagulants

== ENCOUNTER → 2024-03-20 | Outpatient (REF) | payer MEDICARE, OTHER | PROVIDERS: ATTEND Physician Assistant | DX: R11.10 Vomiting, unspecified (principal) ==

== ENCOUNTER → 2024-03-25 | Outpatient (REF) | payer MEDICARE, OTHER ==
[2024-03-25 15:21] LABS: HEMATOCRIT 34.1 % (36.0-47.0); HEMOGLOBIN 10.9 g/dl (12.0-15.5); MEAN CORPUSCULAR HEMOGLOBIN 28.8 pg (27.0-33.0); MEAN CORPUSCULAR VOLUME 90.2 fl (80.0-96.0); PLATELET COUNT, AUTOMATED 329 10^3/uL (150-450); RED BLOOD COUNT 3.78 10^6/uL (4.00-5.40)
[2024-03-25 15:24] LABS: C REACTIVE PROTEIN QUANTITATIV 20.15 MG/DL (<1.0)
[2024-03-25 15:25] LABS: BLOOD UREA NITROGEN 29 MG/DL (9-23); CALCIUM LEVEL 8.8 MG/DL (8.3-10.6); CARBON DIOXIDE LEVEL 28 MMOL/L (20-31); CHLORIDE LEVEL 102 MMOL/L (98-107); CREATININE FOR GFR 0.88 MG/DL (0.55-1.30); GLOMERULAR FILTRATION RATE > 60.0 (>32); GLUCOSE, FASTING 228 MG/DL (74-106); POTASSIUM SERUM 4.4 MMOL/L (3.5-5.1); SODIUM LEVEL 139 MMOL/L (136-145)
[2024-03-25 15:28] LABS: ERYTHROCYTE SEDIMENTATION RATE 28 mm/hr (0-30)
== END ==
PROVIDERS: ATTEND Physician Assistant
DX: M79.641 Pain in right hand (principal)

== ENCOUNTER → 2024-03-26 | Outpatient (REF) | payer MEDICARE, OTHER ==
[2024-03-26 14:06] LABS: HEMATOCRIT 36.3 % (36.0-47.0); HEMOGLOBIN 11.4 g/dl (12.0-15.5); MEAN CORPUSCULAR HEMOGLOBIN 28.9 pg (27.0-33.0); MEAN CORPUSCULAR HGB CONC 31.4 g/dl (32.0-36.5); MEAN CORPUSCULAR VOLUME 92.1 fl (80.0-96.0); PLATELET COUNT, AUTOMATED 335 10^3/uL (150-450); RED BLOOD COUNT 3.94 10^6/uL (4.00-5.40)
[2024-03-26 14:15] LABS: ERYTHROCYTE SEDIMENTATION RATE 34 mm/hr (0-30)
== END ==
PROVIDERS: ATTEND Physician Assistant
DX: M79.641 Pain in right hand (principal)

== ENCOUNTER → 2024-03-27 | Outpatient (REF) | payer MEDICARE, OTHER ==
[2024-03-27 13:53] LABS: BLOOD UREA NITROGEN 26 MG/DL (9-23); C REACTIVE PROTEIN QUANTITATIV 14.34 MG/DL (<1.0); CALCIUM LEVEL 9.4 MG/DL (8.3-10.6); CARBON DIOXIDE LEVEL 30 MMOL/L (20-31); CHLORIDE LEVEL 102 MMOL/L (98-107); CREATININE FOR GFR 0.85 MG/DL (0.55-1.30); GLOMERULAR FILTRATION RATE > 60.0 (>32); GLUCOSE, FASTING 136 MG/DL (74-106); POTASSIUM SERUM 4.4 MMOL/L (3.5-5.1); SODIUM LEVEL 141 MMOL/L (136-145)
== END ==
PROVIDERS: ATTEND Physician Assistant
DX: M79.641 Pain in right hand (principal)

== ENCOUNTER → 2024-04-12 | Outpatient (REF) | payer MEDICARE, OTHER ==
[2024-04-12 17:46] LABS: BASO % 0.4 % (0.0-1.0); EOS # 0.1 10^3/uL (0.0-0.5); HEMATOCRIT 36.9 % (36.0-47.0); HEMOGLOBIN 11.7 g/dl (12.0-15.5); LYMPH # 1.1 10^3/uL (1.5-5.0); MEAN CORPUSCULAR HEMOGLOBIN 28.6 pg (27.0-33.0); MEAN CORPUSCULAR HGB CONC 31.7 g/dl (32.0-36.5); MEAN CORPUSCULAR VOLUME 90.2 fl (80.0-96.0); MONO # 0.8 10^3/uL (0.0-0.8); MONO % 7.1 % (2.0-8.0); NEUTROPHILS # 8.9 10^3/uL (1.5-8.5); NEUTROPHILS % 81.1 % (36.0-66.0); PLATELET COUNT, AUTOMATED 374 10^3/uL (150-450); RED BLOOD COUNT 4.09 10^6/uL (4.00-5.40); WHITE BLOOD COUNT 10.9 10^3/uL (4.0-10.0)
[2024-04-12 17:52] LABS: ERYTHROCYTE SEDIMENTATION RATE 54 mm/hr (0-30)
[2024-04-12 18:10] LABS: URIC ACID 7.4 MG/DL (3.1-7.8)
[2024-04-12 18:13] LABS: BLOOD UREA NITROGEN 20 MG/DL (9-23); C REACTIVE PROTEIN QUANTITATIV 24.14 MG/DL (<1.0); CALCIUM LEVEL 8.8 MG/DL (8.3-10.6); CARBON DIOXIDE LEVEL 27 MMOL/L (20-31); CHLORIDE LEVEL 101 MMOL/L (98-107); CREATININE FOR GFR 0.88 MG/DL (0.55-1.30); GLOMERULAR FILTRATION RATE > 60.0 (>32); GLUCOSE, FASTING 129 MG/DL (74-106); POTASSIUM SERUM 4.7 MMOL/L (3.5-5.1); SODIUM LEVEL 138 MMOL/L (136-145)
== END ==
PROVIDERS: ATTEND Physician Assistant
DX: R22.31 Localized swelling, mass and lump, right upper limb (principal)

== ENCOUNTER → 2024-04-15 | Outpatient (REF) | payer MEDICARE, OTHER ==
[2024-04-15 15:11] LABS: HEMATOCRIT 34.4 % (36.0-47.0); HEMOGLOBIN 11.4 g/dl (12.0-15.5); MEAN CORPUSCULAR HEMOGLOBIN 30.9 pg (27.0-33.0); MEAN CORPUSCULAR HGB CONC 33.1 g/dl (32.0-36.5); MEAN CORPUSCULAR VOLUME 93.2 fl (80.0-96.0); PLATELET COUNT, AUTOMATED 387 10^3/uL (150-450); RED BLOOD COUNT 3.69 10^6/uL (4.00-5.40); WHITE BLOOD COUNT 8.9 10^3/uL (4.0-10.0)
[2024-04-15 15:18] LABS: ERYTHROCYTE SEDIMENTATION RATE 35 mm/hr (0-30)
[2024-04-15 15:37] LABS: BLOOD UREA NITROGEN 35 MG/DL (9-23); CALCIUM LEVEL 9.2 MG/DL (8.3-10.6); CARBON DIOXIDE LEVEL 27 MMOL/L (20-31); CHLORIDE LEVEL 103 MMOL/L (98-107); CREATININE FOR GFR 0.84 MG/DL (0.55-1.30); GLOMERULAR FILTRATION RATE > 60.0 (>32); GLUCOSE, FASTING 80 MG/DL (74-106); SODIUM LEVEL 139 MMOL/L (136-145)
== END ==
PROVIDERS: ATTEND Physician Assistant
DX: R22.31 Localized swelling, mass and lump, right upper limb (principal)

== ENCOUNTER → 2024-04-18 | Outpatient (REF) | payer MEDICARE, OTHER ==
[2024-04-18 10:34] LABS: HEMATOCRIT 34.8 % (36.0-47.0); HEMOGLOBIN 12.2 g/dl (12.0-15.5); MEAN CORPUSCULAR HEMOGLOBIN 33.2 pg (27.0-33.0); MEAN CORPUSCULAR HGB CONC 35.1 g/dl (32.0-36.5); MEAN CORPUSCULAR VOLUME 94.8 fl (80.0-96.0); PLATELET COUNT, AUTOMATED 396 10^3/uL (150-450); RED BLOOD COUNT 3.67 10^6/uL (4.00-5.40); WHITE BLOOD COUNT 9.7 10^3/uL (4.0-10.0)
[2024-04-18 10:54] LABS: ERYTHROCYTE SEDIMENTATION RATE 22 mm/hr (0-30)
[2024-04-18 10:57] LABS: C REACTIVE PROTEIN QUANTITATIV 2.53 MG/DL (<1.0)
[2024-04-18 10:58] LABS: BLOOD UREA NITROGEN 31 MG/DL (9-23); CALCIUM LEVEL 9.3 MG/DL (8.3-10.6); CARBON DIOXIDE LEVEL 27 MMOL/L (20-31); CHLORIDE LEVEL 104 MMOL/L (98-107); CREATININE FOR GFR 0.84 MG/DL (0.55-1.30); GLOMERULAR FILTRATION RATE > 60.0 (>32); GLUCOSE, FASTING 113 MG/DL (74-106); POTASSIUM SERUM 4.6 MMOL/L (3.5-5.1); SODIUM LEVEL 144 MMOL/L (136-145)
== END ==
PROVIDERS: ATTEND Physician Assistant
DX: R22.31 Localized swelling, mass and lump, right upper limb (principal)

== ENCOUNTER → 2024-05-13 | Outpatient (REF) | payer MEDICARE, OTHER | PROVIDERS: ATTEND Physician Assistant | DX: R05.9 Cough, unspecified (principal); I70.0 Atherosclerosis of aorta; I51.7 Cardiomegaly ==

== ENCOUNTER → 2024-05-13 | Outpatient (REF) | payer MEDICARE, OTHER | PROVIDERS: ATTEND Internal Medicine | DX: R05.9 Cough, unspecified (principal); I70.0 Atherosclerosis of aorta; I51.7 Cardiomegaly ==

== ENCOUNTER → 2024-05-15 | Outpatient (REF) | payer MEDICARE, OTHER ==
[2024-05-15 09:17] LABS: CALCIUM LEVEL 9.1 MG/DL (8.3-10.6); CREATININE FOR GFR 0.99 MG/DL (0.55-1.30); GLOMERULAR FILTRATION RATE 56.4 (>32); POTASSIUM SERUM 4.7 MMOL/L (3.5-5.1)
[2024-05-15 09:27] LABS: HEMATOCRIT 36.8 % (36.0-47.0); MEAN CORPUSCULAR HEMOGLOBIN 32.7 pg (27.0-33.0); MEAN CORPUSCULAR HGB CONC 35.3 g/dl (32.0-36.5); MEAN CORPUSCULAR VOLUME 92.7 fl (80.0-96.0); PLATELET COUNT, AUTOMATED 439 10^3/uL (150-450); RED BLOOD COUNT 3.97 10^6/uL (4.00-5.40); WHITE BLOOD COUNT 4.2 10^3/uL (4.0-10.0)
== END ==
PROVIDERS: ATTEND Physician Assistant
DX: U07.1 COVID-19 (principal); Z79.899 Other long term (current) drug therapy

== ENCOUNTER → 2024-06-24 | Outpatient (REF) | payer MEDICARE, OTHER ==
[2024-06-24 16:37] LABS: APPEARANCE, URINE CLOUDY (CLEAR); BACTERIA, URINE AUTO 1+ (NEGATIVE); BILIRUBIN, URINE AUTO NEGATIVE (NEGATIVE); BLOOD, URINE BLOOD 3+ (NEGATIVE); COLOR, URINE YELLOW (YELLOW); GLUCOSE, URINE (UA) AUTO NEGATIVE (NEGATIVE); KETONE, URINE AUTO NEGATIVE (NEGATIVE); LEUKOCYTE ESTERASE, URINE AUTO 3+ (NEGATIVE); MUCUS, URINE SMALL (NEGATIVE); NITRITE, URINE AUTO NEGATIVE (NEGATIVE); PROTEIN, URINE AUTO NEGATIVE (NEGATIVE); RBC, URINE AUTO 3 /HPF (0-3); SPECIFIC GRAVITY URINE AUTO 1.004 (1.002-1.035); SQUAMOUS EPITHELIAL CELL UR AU 1 /HPF (0-6); UROBILINOGEN, URINE AUTO 0.2 mg/dL (0.0-2.0); WBC, URINE AUTO TNTC /HPF (0-3)
== END ==
PROVIDERS: ATTEND Internal Medicine
DX: R82.998 Other abnormal findings in urine (principal)

== ENCOUNTER → 2024-12-09 | Outpatient (REF) | payer MEDICARE, OTHER | PROVIDERS: ATTEND Physician Assistant | DX: M25.522 Pain in left elbow (principal) ==

== ENCOUNTER → 2024-12-31 | Outpatient (CLI) | payer MEDICARE, OTHER | LOC: M RAD 10:16 | PROVIDERS: ATTEND Physician Assistant | DX: R10.2 Pelvic and perineal pain (principal); M25.552 Pain in left hip; R51.9 Headache, unspecified ==